=== PATIENT | male | born 1970 | race Caucasian/White ===

== ENCOUNTER → 2025-06-27 07:29 | Outpatient (REF) | payer BC, SELFPAY | LOC: RAD 07:29 | PROVIDERS: ATTENDING PHYSICIAN Internal Medicine Cardiovascular Disease; FAMILY PHYSICIAN Nurse Practitioner Family | DX: Z13.6 Encounter for screening for cardiovascular disorders (principal); Z82.49 Family history of ischemic heart disease and other diseases of the circulatory system | CPT/HCPCS: 76770 ==

== ENCOUNTER 2025-07-14 14:41 | Inpatient (IN) | payer BC, SELFPAY ==
[2025-07-14] VITALS (8 sets, daily range): BP systolic 113–139; BP diastolic 67–88; BMI 30.6
--- NOTE | 2025-07-14 09:46 | ED.GENMED ---
History of Present Illness
General
Chief Complaint: Numbness
Source: patient and spouse
Exam Limitations: none
Time Seen by Provider: 07/14/25 09:21
Nursing documentation reviewed up to this point in time: agreed with
History of Present Illness
History of Present Illness:
Patient is a 54-year-old man with a past medical history of multiple sclerosis who recently underwent left hip surgery for a chronic left hip prosthesis infection. Patient recently had a PICC line placed in his right upper arm for daily
administration of daptomycin for this chronic left hip infection. He is due for his next dose of daptomycin at 10:30 AM this morning. Patient reports that since yesterday, he has been experiencing a feeling of tingling, numbness and achiness
extending from the back of his right shoulder down his forearm into his 4th and 5th right fingers. Patient reports symptoms have been constant. He also feels a sense of numbness and pressure in his right armpit area. Patient denies fevers and
chills. He denies chest pain or shortness of breath. Patient denies any swelling of the right arm. He and his are concerned that there might be some dislodgment of the PICC line or clot. Patient denies numbness of the right face and right
leg. Patient feels as though the right arm is slightly weak due to it feeling slightly tingly. Patient reports that with his MS he has experienced numbness on the right side, however, it has not been this persistent. His reports that he
takes meloxicam and is not able to take any other NSAIDs. Patient reports that he has persistent neck pain but has not experienced any severe acute neck pain. Patient just received recent MRIs of his C-spine which show multiple areas of spinal
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
Past History
Past History
ED Past Medical History: HTN, Hypercholesterolemia and Other (MS)
ED Past Surgical History: Orthopedic
Social History
Tobacco: Non-smoker
Alcohol: Occasional
Drug: None
Personal:
Living: with family
Employment: Employed
Family History
Family History: Other (Noncontributory)
Review of Systems
Review of Systems
Allergies reviewed?: Yes
All Other Systems: ROS reviewed and negative except as documented in HPI and ROS
Constitutional: Reports no symptoms
EENT: Reports other (Chronic mild neck pain but no acute exacerbation or injury)
Respiratory: Reports no symptoms
Cardiac: Reports no symptoms
ABD/GI: Reports no symptoms
: Reports no symptoms
Musculoskeletal: Reports muscle pain (Achiness behind right shoulder extending down right upper arm, right forearm and right 4th and 5th finger)
Skin: Reports no symptoms
Neurological: Reports numbness
Endocrine: Reports no symptoms
Hematologic/Lymphatic: Reports no symptoms
Psychiatric: Reports no symptoms
Phy Exam
Physical Exam
Physical Exam:
Physical Exam
General: no apparent distress, not acutely ill. Uncomfortable appearing
Neck: supple. No crepitus or fullness of cervical neck or bilateral shoulders
Heart: s1/s2 regular rate and rhythm, no murmur. equal radial pulses. Strong pulses in bilateral wrists and upper extremities
Lungs: no acute respiratory distress. clear bilaterally
Abdomen: normal bowel sounds. not tender. no CVAT
Neuro: alert and oriented x 3. no focal neurological deficits. 5 out of 5 strength in all extremities without any drift. Patient notes diminished sensation of lateral upper arm, lateral forearm and 4th and 5th right
fingers
Skin: no rash. No erythema, skin tenderness, rash fluctuance, or swelling of right upper extremity. PICC line site appears clean and dry without drainage or redness
Psychiatric: well kept. interactive and cooperative
Extremities: no edema. no calf tenderness. negative homans. good distal pulses
Course
Orders/Labs/Results
Orders:
Orders
07/14/25 09:44
CR Chest - 2 Views Urgent
Comment:
Reason For Exam: PICC line placement
US Arms, Right [US Periph Venous UPPER Ext RT] Urgent
Comment:
Reason For Exam: numbness, achiness RUE
07/14/25 09:57
Electrocardiogram (*1) Urgent
Reason for Study: Other
Other Reason for Exam: R arm pain and numbness
EKG- Treatment ONCE
07/14/25 12:03
CPK [Creatine Phosphokinase] Urgent
Complete Blood Count/With Diff Urgent
Comprehensive Metabolic Panel Urgent
07/14/25 13:48
Heparin 7,800 units IV NOW STA
07/14/25 13:[address] Non Medication Order As Directed
Physician Order: PTT 6 hours after initial start of Heparin infusion
07/14/25 14:00
Heparin 84648 Units/250 ml 25,000 units in 250 ml IV PER PROTOCOL
Weight to be used for heparin protocol in kilograms (kg):: 97.522
Protocol:: DVT/PE
PTT Goal Range to be used:: PTT 73 to 111 seconds
Order type:: Initial
INITIAL Infusion Dose (UNITS/KG/hr) & then follow protocol:: 18 units/kg/hr
Infusion Dose in UNITS/hr & then follow protocol (UNITS/hr):: 1,800
INFUSION RATE in mL/hr & then follow protocol (mL/hr):: 18
For DVT/PE algorithm, re-bolus for low PTT?: Yes
PTT less than or equal to 64 seconds:: Re-bolus 80 units/kg (max 10,000units). Increase by 400 units/hr
(+ 4mL/hr)
PTT 64.1 to 72.9 seconds:: Re-bolus 40 units/kg (max 5,000 units). Increase by 200 units/hr
(+ 2mL/hr)
PTT 73 to 111 seconds:: Target Range. No change in rate.
PTT 111.1 to 130.9 seconds:: Decrease rate by 200 units/hr (- 2 mL/hr)
PTT 131 to 199.9 seconds:: HOLD for 1 hr. Then decrease by 300 units/hr (- 3mL/hr)
PTT greater than or equal to 200 seconds:: HOLD for 2 hrs & Notify Provider. Then decrease by 400 units/hr
(- 4mL/hr)
Lab follow-up:: Each change, PTT q6h until 2 consecutive are therapeutic. Then
PTT daily.
07/14/25 14:01
Heparin 3,900 units IV PRN PRN
Heparin 7,800 units IV PRN PRN
07/14/25 14:08
PTT Urgent
Comment: Obtain baseline before beginning heparin infusion if not already collected
Abnormal Lab Results
07/14/25
12:03
RBC 4.28 L 10^6/uL
(4.70-6.10)
Hgb 12.0 L g/dL
(13.0-18.0)
Hct 35.7 L %
(39.0-52.0)
Absolute Neuts (auto) 7.3 H 10^3/uL
(1.4-6.5)
Neutrophils % 77.5 H %
(42.2-75.2)
Lymphocytes % 14.5 L %
(20.5-51.1)
BUN 27 H mg/dl
(9-20)
07/14/25 12:03
07/14/25 12:03
Vital Signs
Initial and Last Documented VS:
Initial Vital Signs
Temp Pulse Resp BP Pulse Ox
98.4 F 92 20 123/86 97
07/14/25 09:07 07/14/25 09:07 07/14/25 09:07 07/14/25 09:07 07/14/25 09:07
Last Documented Vital Signs
Temp Pulse Resp BP Pulse Ox
98.4 F 80 20 137/88 97
07/14/25 09:07 07/14/25 13:26 07/14/25 13:26 07/14/25 13:26 07/14/25 09:55
MDM/Problems Addressed
Differential Diagnosis Includes:
Cervical radiculopathy due to spinal stenosis of C-spine, dislodgment of PICC line, DVT of right upper extremity
MDM/Problems Addressed:
Patient presents with isolated tingling and achiness of the right shoulder, right upper arm extending into right 4th and 5th finger
Chronic conditions affecting care:
Multiple sclerosis
Acute Exacerbation and/or Progression of Chronic Illness:
Patient may have acute exacerbation of multiple sclerosis causing focal pain and numbness of right upper extremity
*Radiology
Radiology exam reviewed: preliminary read by ED provider (Chest x-ray read by me. Good placement of PICC line) and radiology read reviewed
*Pulse Oximetry
SaO2: 97
Oxygen Mode of Delivery: Room air
Patient hypoxic: no
*EKG
Interpreted by ED Provider?: Yes
Interpretation: normal
Comparison EKG: no comparison EKG present
Rate: normal
Rhythm: sinus
[place]: normal axis
Interval: normal interval
QRS Pattern: normal QRS
Ischemia: no ischemia
*[employer] Tender Interpretation
Rate: normal
Interpretation: normal
Rhythm: sinus
*Critical Care Note
Total Time (30-74mins, 75-104mins- exclusive of procedures): Not Applicable
Data Reviewed
Review of Other/Old Records Reveals: Radiology Studies (Recent 2024 cervical spine MRI report reviewed from patient's medical records from 's cell phone. I also reviewed C-spine MRI from 2022 which showed multiple levels of DJD and foraminal
narrowing)
Source: patient and spouse
Patient Management
Social determinants of health affecting care: Living situation and Strong social support
Discussion with other providers: Hospitalist and Other (Dr. Luis from hematology as well as interventional radiology and vascular surgery)
Escalation/DeEscalation of care consider admission/obs:
Decision made to start patient on heparin, pull out PICC line and replace PICC line tomorrow. Patient has soft compartments of right upper extremity with strong pulses. There is no sign of neurovascular compromise.
Update Note
Update Note:
Patient appears extremely well and comfortable. Patient has no true weakness of his right upper extremity. Patient has excellent strength bilaterally. Patient has no numbness or tingling in face or leg. Additionally, patient also has pain and
achiness that is not typical of stroke. Additionally, patient has a distribution of numbness and tingling that follows more of a peripheral nerve paresis rather than central stroke.
ED Attending Note
-
Portions of this chart may have been created with voice recognition software.� Occasional wrong word or��sound alike� substitutions may have occurred due to the inherent limitations of voice recognition software.
Discharge Plan
Departure
Patient Disposition: Admit
Date of Disposition: 07/14/25
Time of Disposition: 13:48
Admit to: Med/Surg
Presentation/result/management discussed w/ accepting MD/DO: Hospitalist
Patient with high blood pressure during this ER visit?: No
Condition: Good
Covid-19: Not Applicable
Discharge Problem:
Acute deep vein thrombosis (DVT) of left upper extremity
Prescriptions:
New
Eliquis 5 mg tablet
5 mg PO BID Qty: 70 0RF
Rx Instructions:
To 10 mg twice daily for 7 days then 5 mg twice daily thereafter
No Action
meloxicam [Mobic] 15 mg Tablet
15 mg PO HS
aspirin 81 mg Tablet,Delayed Release (Dr/Ec)
81 mg PO BID
ascorbic acid (vitamin C) [Vitamin C] 250 mg Tablet
250 mg PO DAILY
pantoprazole [Protonix] 40 mg Tablet,Delayed Release (Dr/Ec)
40 mg PO BID
cholecalciferol (vitamin D3) [Vitamin D3] 10 mcg (400 unit) Tablet
10 mcg PO DAILY
Visbiome 112.5 billion cell Capsule
1 cap PO DAILY
daptomycin 350 mg Recon Soln
600 mg IV DAILY@1000
Rx Instructions:
patient has 5 weeks remaining
Referrals:
Trevor Gomez CRNP [Family Provider, General]
Interventions
Interventions:
*Risk Screen - Suicide Last Done: 07/14/25 09:07
*General Assessment Last Done: 07/14/25 09:07
*Neglect/Abuse Screening Last Done: 07/14/25 09:07
[facility] Fall Risk Assessment Tool Last Done: 07/14/25 10:38
ED- Neurological Assessment Last Done: 07/14/25 10:26
Discharge Date and Time
Print Language: WOLOF
[2025-07-14 12:23] LABS: Hematocrit 35.7 % (39.0-52.0); Hemoglobin 12.0 g/dL (13.0-18.0); Mean Corp Hgb Conc. 33.6 g/dL (33.0-37.0); Mean Corpuscular Volume 83.4 fL (80.0-94.0); Nucleated Red Blood Cells % 0 % (-); Platelet Count 295 10^3/uL (130-400); Red Cell Dist. Width 14.3 % (11.5-14.5)
[2025-07-14 12:32] LABS: ALT (SGPT) 50 U/L (0-50); AST (SGOT) 35 U/L (17-59); Albumin 3.9 g/dl (3.5-5.0); Alkaline Phosphatase 94 U/L (38-126); Blood Urea Nitrogen 27 mg/dl (9-20); Calcium 9.2 mg/dl (8.4-10.2); Carbon Dioxide 25 mmol/L (22-30); Chloride 105 mmol/L (98-107); Glucose 95 mg/dl (70-99); Potassium 4.4 mmol/L (3.5-5.1); Sodium 137 mmol/L (135-145); Total Protein 6.4 g/dl (6.3-8.2); eGFR > 60.00
--- NOTE | 2025-07-14 13:42 | HPS.HSE ---
Family Physician
-
Family Physician: ROSALBA Milligan
Chief Complaint
-
right upper extremity numbness and tingling
History of Present Illness
Patient is a 54-year-old male with past medical history significant for multiple sclerosis, CAD and hyperlipidemia who presented to [facility] ED for evaluation of right upper extremity numbness and tingling. Patient reports having left hip revision with
RUE PICC placement 9 days ago for on going prosthetic infection. Patient currently has left hip spacer in place and is 50% weight bearing to that leg. He describes numbness and tingling down right arm to 4th and 5th digits that he stated felt
different than previous numbness and tingling with MS. He felt it was positional from possible poor posture. He notes 'heaviness' in right shoulder, upper chest and armpit. He states it has been consitent since onset yesterday afternoon. PICC line
was functioning proplerly and no difficulty with flushing. Denies fever, chills, cough, shortness of breath or chest pain.
Medical History
Past Medical History
Past Medical History: Reports Other
Additional Past Medical History:
multiple sclerosis
CAD
hyperlipidemia
Past Surgical History: Reports Other
Additional Past Surgical History:
LTHA 08.22.2023
Right RAKESH DOS 11/21/23 [facility]
Social History
Tobacco: Non-smoker
Alcohol: Occasional
Drug: None
Personal:
Living: With Family
Employment: Employed
Family History
Family History: Not pertinent
Allergies / Home Medications
Allergies reflects when Allergies were last updated in [facility].
Home Medications with original date entered in [facility]
Allergy/Medication List:
Allergies
Allergy/AdvReac Type Severity Reaction Status Date / Time
NKA - No Known Allergies Allergy Unknown Uncoded 07/14/25 09:12
Home Medications
Lactobac no.2-Bifidobac no.1-S. thermo 112.5 billion cell capsule (Visbiome) 1 cap PO DAILY Supplement 07/14/25
apixaban 5 mg tablet (Eliquis) 5 mg PO BID #70 tabs 07/14/25
ascorbic acid (vitamin C) 250 mg tablet (Vitamin C) 250 mg PO DAILY Supplement 07/14/25
aspirin 81 mg tablet,delayed release 81 mg PO BID Blood Clot Prevention/Tx 07/14/25
cholecalciferol (vitamin D3) 10 mcg (400 unit) tablet (Vitamin D3) 10 mcg PO DAILY Supplement 07/14/25
daptomycin 350 mg intravenous solution 600 mg IV DAILY@1000 Infection 07/14/25
meloxicam 15 mg tablet 15 mg PO HS Anti-Inflammatory 07/14/25
pantoprazole 40 mg tablet,delayed release (Protonix) 40 mg PO BID Gastrointestinal Issue 07/14/25
Review of Systems
-
History Source: Patient
Constitutional: Denies Fever or Chills
EENT: Denies Tearing
Respiratory: Denies Cough, Hemoptysis or Trouble Breathing
Cardiac: Denies Chest Pain, Diaphoresis, Palpitations or Syncope
Abdomen/GI: Denies Abdominal Pain, Nausea, Vomiting or Diarrhea
: Denies Dysuria, Frequency or Urgency
Musculoskeletal: Reports Other (RUE numbness and tingling down arm to 4th and 5th digit with 'heaviness' in right shoulder/upper chest and right armpit)
Skin: Denies Itching
Neurological: Denies Dizzy, Headache, Weakness or Numbness
Physical Exam
Vital Signs
Vital Signs
Temp Pulse Resp BP Pulse Ox
98.4 F 80 20 137/88 97
07/14/25 09:07 07/14/25 13:26 07/14/25 13:26 07/14/25 13:26 07/14/25 09:55
Physical Exam
General: Well Developed, Well Nourished, No Apparent Distress, Comfortable and Conversant
HEENT: NormoCephalic, Moist mucous membranes, Nose Appears Normal and Ears Appear Normal
Respiratory: Clear and Non Labored Respirations; No Wheezes, Rales or Rhonchi
Cardiac: Regular Rhythm and Other (strong BLUE pulses ); No Murmur, Rub, Gallop or Peripheral Edema
GI: Soft, Non Tender, Non Distended and Normal Bowel Sounds
Musculoskeletal: No Clubbing, No Cyanosis and No Edema
Skin: Warm and IV/Catheter Site (RUE PICC)
Neuro: Awake and AO x 3
Psych: Calm and Intact Judgment/Insight
Laboratory Results
-
07/14/25 12:03
07/14/25 12:03
Laboratory Results
Total Bilirubin 0.6 mg/dl (0.2-1.3) 07/14/25 12:03
AST 35 U/L (17-59) 07/14/25 12:03
ALT 50 U/L (0-50) 07/14/25 12:03
Alkaline Phosphatase 94 U/L (38-126) 07/14/25 12:03
Data Reviewed
-
Diagnostic Radiology: Report Reviewed by me (CXR: No acute cardiopulmonary process. The right PICC appears well-positioned with the tip in the SVC)
Ultrasound: Report Reviewed by me (RUE Peripheral Venous: Thrombus noted along the course of the right PICC. Nonocclusive thrombus in the mid and distal segments of the right axillary vein. Thrombus in the right basilic vein, nonocclusive in the
distal segment and nearly occlusive in the proximal segment. The right internal jugular,)
Lab Data: Labs Reviewed by me
Impression/Plan
-
IMPRESSION/PLAN:
#numbness and tingling of RUE down to right 4th and 5th digit 2/2 DVT vs. MS exacerbation
RUE numbness and tingling down arm to 4th and 5th digit with 'heaviness' in right shoulder/upper chest and right armpit
labs unremarkable
CXR: No acute cardiopulmonary process.
The right PICC appears well-positioned with the tip in the SVC
RUE Periph Venous US: Thrombus noted along the course of the right PICC. Nonocclusive thrombus in the mid and distal segments of the right axillary vein. Thrombus in the right basilic vein,
nonocclusive in the distal segment and nearly occlusive in the proximal segment.
The right internal jugular, subclavian, brachial, and cephalic veins are patent.
- Admit to med/surg
- Consult IR to replace PICC line
- Heparin gtt
- expect to bridge to [facility]
- Consult Case Management for OAC pricing
#left hip prosthetic infection
being treated at [facility] in [place]
approximate 9 days ago had left hip revision with spacer placed and RUE PICC for IV antibiotics at home
- continue daptomycin
- Consult Wound care for surgical incision
#CAD
- continue aspirin
#multiple sclerosis
#hyperlipidemia
Code status: full code
DVT prophylaxis: heparin gtt
--- NOTE | 2025-07-14 13:55 | VATNOTE ---
Called to ED by PCN to discuss PICC line in light of clot in R arm with ED MD. Pt for 5 more weeks of daptomycin. ED MD states that per hematology, clot should be stabilized with heparin for a period of time before removing the PICC after that time
the PICC could be replaced in the LUE and the pt should be sent home on blood thinners. Clave on PICC line taped and annotated with 'DO NOT USE.'
[2025-07-14] MEDS: HEPARIN 25000 UNITS/250 ML IV (14:18)
[2025-07-14] MEDS: HEPARIN 7800 UNITS IV (14:20)
[2025-07-14 14:26] LABS: APTT 33.1 Sec (23.4-35.0)
--- NOTE | 2025-07-14 14:59 | CM ---
Chart reviewed and spoke with patient and [place] at ED bedside
He is alert and oriented x3
Left hip Revision done at outside hospital
left lower leg 50% wt bearing [facility]
RUE Picc for Dapto by [facility]
DME walker w/c and cane
Works from home
supportive
PCP Dr. Trevor Belcher
[facility] in [place]
[facility]
no hx of SNF
DCP is to go home with services vs SNF vs AR?
Cm will continue to follow up for any dcp needs
[2025-07-14] MEDS: ASPIR LOW (ENTERIC COATED) 81 MG PO (19:57)
[2025-07-14] MEDS: PROTONIX PO (19:57)
[2025-07-14] MEDS: TYLENOL 650 MG PO (20:21)
[2025-07-14 20:43] LABS: INR 1.14; PT 14.7 Sec (11.4-14.6)
[2025-07-14 20:46] LABS: APTT 125.2 Sec (23.4-35.0)
[2025-07-15 03:06] VITALS: BP 110/71
[2025-07-15 03:38] LABS: APTT 106.5 Sec (23.4-35.0)
[2025-07-15] MEDS: HEPARIN 25000 UNITS/250 ML IV ×2 (05:27→21:15)
[2025-07-15 07:22] VITALS: BP 129/67
[2025-07-15] MEDS: PROTONIX 40 MG PO (08:23)
[2025-07-15] MEDS: ASPIR LOW (ENTERIC COATED) PO ×2 (08:23→19:36)
--- NOTE | 2025-07-15 08:23 | PTCARENOTE ---
in room during AM med pass, advised this RN not to give AM ASA due to pt being on heparin gtt. AM dose of ASA held, see OCT.
--- NOTE | 2025-07-15 08:35 | CON.ONC ---
Consultation
-
Date Consultation Requested: 07/15/25
Date Consultation Performed: 07/15/25
Requesting Provider: Dr. Jose Antonio Deleon
Performing Provider: Dr. Minerva Mesa
Reason for Consultation: DVT
Impression
Impression
Provoked in the setting of right upper extremity PICC line placed at [facility] for home Dapto infusion after left hip revision
Left hip prosthetic infection -on dapto
MTRF mutation
mild normocytic anemia - suspect due to surgery, infection, abx
Multiple sclerosis
Plan
Plan
PO vit b12 daily for level <400
Remove PICC, defer to ID specialists if new picc line is needed based on next steps in abx therapy
pain management
Anticoagulating with IV heparin drip
transition to DOAC at discharge
repeat UE US prior to cessation of DOAC
close follow up with our OP office will be arranged upon discharge
Patient History
History of Present Illness
54-year-old M who presented to ED for evaluation of right upper extremity numbness and tingling. He has a RUE PICC for on going prosthetic infection following a left hip revision. He reports numbness and tingling down the right arm to 4th and 5th
digits that he stated felt different than previous numbness and tingling with his MS. He also reports 'heaviness' in right shoulder, upper chest and armpit since Tuesday afternoon. His PICC line was functioning without difficulty with flushing. His
initial evaluation was notable for Hgb 12g/dL, MCV 83.4 with normal platelets, WBC, LFTS, electrolytes, and renal function. His CXR showed no acute cardiopulmonary findings and his RUE PICC was well positioned in SVC. His RUE US showed Thrombus
noted along the course of the right PICC. Nonocclusive thrombus in the mid and distal segments of the right axillary vein. Thrombus in the right basilic vein, nonocclusive in the distal segment and nearly occlusive in the proximal segment. The right
internal jugular, subclavian, brachial, and cephalic veins are patent.
Clinically, He denies fever, chills, cough, shortness of breath, chest pain, palpitations, n/v/d/c or abdominal pain. He denies any overt bleeding.
Afebrile, no hypoxia or hypotension.
Past-Medical/Surgical History
PMH MS, CAD, HLD
PSH Left hip replacement and revision. Right RAKESH DOS 11/21/23V
Social , employed, denies smoking, ETOH or recreational drugs
Family: non-contributory
Patient Medication
�Medication �Instructions �Recorded �Confirmed �Last Taken �Type
Lactobac no.2-Bifidobac no.1-S. 1 cap PO DAILY Supplement 07/14/25 07/14/25 07/13/25 History
thermo 112.5 billion cell capsule
(Visbiome)
apixaban 5 mg tablet (Eliquis) 5 mg PO BID #70 tabs 07/14/25 Unknown Rx
ascorbic acid (vitamin C) 250 mg 250 mg PO DAILY Supplement 07/14/25 07/14/25 07/13/25 History
tablet (Vitamin C)
aspirin 81 mg tablet,delayed 81 mg PO BID Blood Clot 07/14/25 07/14/25 07/14/25 History
release Prevention/Tx
cholecalciferol (vitamin D3) 10 10 mcg PO DAILY Supplement 07/14/25 07/14/25 07/13/25 History
mcg (400 unit) tablet (Vitamin D3)
daptomycin 350 mg intravenous 600 mg IV DAILY@1000 Infection 07/14/25 07/14/25 07/14/25 History
solution
meloxicam 15 mg tablet 15 mg PO HS Anti-Inflammatory 07/14/25 07/14/25 07/13/25 History
pantoprazole 40 mg tablet,delayed 40 mg PO BID Gastrointestinal Issue 07/14/25 07/14/25 07/14/25 History
release (Protonix)
Active Medications
Generic Name Dose Route Start Last Admin
Trade Name Freq PRN Reason Stop Dose Admin
Acetaminophen 650 mg 07/14/25 19:36 07/14/25 20:21
Acetaminophen 325 Mg Tablet PO 08/11/25 19:35 650 mg
Q4HPRN PRN Administration
pain/fever
Aspirin 81 mg 07/14/25 20:00 07/15/25 08:23
Aspirin 81 Mg (Enteric Coated) Tablet PO 08/11/25 19:59 Not Given
BID SHIELA
Heparin Sodium 7,800 units 07/14/25 14:01
Heparin 80 Units/Kg Iv Rebolus IV 08/11/25 14:00
PRN PRN
PTT < OR = 64 seconds
Heparin Sodium 3,900 units 07/14/25 14:01
Heparin 40 Units/Kg Iv Rebolus IV 08/11/25 14:00
PRN PRN
PTT = 64.1 to 72.9 seconds
Heparin Sodium 25,000 units in 250 mls @ 0 mls/hr 07/14/25 14:00 07/15/25 05:27
Heparin 92150 Units/250 Ml IV 250 mls
PER PROTOCOL SHIELA Administration
Protocol
Per Protocol
Daptomycin 600 mg/ Device 12 mls @ 0 mls/hr 07/15/25 10:00
IV
Q24H SHIELA
Pantoprazole Sodium 40 mg 07/14/25 20:00 07/15/25 08:23
Pantoprazole 40 Mg Delayed Release Tablet PO 08/11/25 19:59 40 mg
BID SHIELA Administration
Sodium Chloride 0 flush 07/14/25 20:00
Sodium Chloride 0.9% (Flush) Syringe IV 08/11/25 19:59
PER PROTOCOL SHIELA
Review of Systems
-
ROS is notable for HPI, otherwise negative
Physical Exam
-
General: No Apparent Distress
HEENT: Moist Mucous Membranes; Negative Jaundice
Pulmonary: Other (unlabored)
GI: Soft
Extremities: Pulses Present
Neurology: Non Focal
Skin: Warm, IV Access / Catheter Site (RUE PICC) and Other (left hip surgical wound CDI with eduardo in place and no drainage)
Psych: Calm
Labs
Lab Results
WBC 9.4 10^3/uL (4.8-10.8) 07/14/25 12:03
RBC 4.28 10^6/uL (4.70-6.10) L 07/14/25 12:03
Hgb 12.0 g/dL (13.0-18.0) L 07/14/25 12:03
Hct 35.7 % (39.0-52.0) L 07/14/25 12:03
MCV 83.4 fL (80.0-94.0) 07/14/25 12:03
MCH 28.0 pg (27.0-31.0) 07/14/25 12:03
MCHC 33.6 g/dL (33.0-37.0) 07/14/25 12:03
RDW 14.3 % (11.5-14.5) 07/14/25 12:03
Plt Count 295 10^3/uL (130-400) 07/14/25 12:03
MPV 9.0 fL (7.4-10.4) 07/14/25 12:03
Abs Immat Gran (auto) 0.0 10^3/uL (0-0.05) 07/14/25 12:03
Absolute Neuts (auto) 7.3 10^3/uL (1.4-6.5) H 07/14/25 12:03
Absolute Lymphs (auto) 1.4 10^3/uL (1.2-3.4) 07/14/25 12:03
Absolute Monos (auto) 0.5 10^3/uL (0.1-0.6) 07/14/25 12:03
Absolute Eos (auto) 0.2 10^3/uL (0-0.7) 07/14/25 12:03
Absolute Basos (auto) 0.0 10^3/uL (0-0.2) 07/14/25 12:03
Immature Gran % 0.4 % (0-0.5) 07/14/25 12:03
Neutrophils % 77.5 % (42.2-75.2) H 07/14/25 12:03
Lymphocytes % 14.5 % (20.5-51.1) L 07/14/25 12:03
Monocytes % 5.6 % (1.7-9.3) 07/14/25 12:03
Eosinophils % 1.6 % (0-6) 07/14/25 12:03
Basophils % 0.4 % (0-2) 07/14/25 12:03
Creatinine 0.8 mg/dL (0.7-1.3) 07/14/25 12:03
Vital Signs
Vital Signs
Temp Pulse Resp BP Pulse Ox
98.8 F 64 18 129/67 94
07/15/25 07:22 07/15/25 07:22 07/15/25 07:22 07/15/25 07:22 07/15/25 07:22
[2025-07-15] MEDS: CUBICIN 12 MG IV (09:45)
[2025-07-15 09:55] LABS: APTT 88.8 Sec (23.4-35.0)
--- NOTE | 2025-07-15 10:04 | W.PN.HOSP.TC ---
Addendum entered and electronically signed by Adolfo Deleon MD 07/15/25 17:34:
Addendum
Discussed with patient and his options for anticoagulation. They chose Eliquis. Co-pay around $80 at pharmacy
Discussed plan of care. Answered questions
End
Original Note:
Today's Communication/Plan
-
.
Assessment / Plan
Assessment / Plan
Physical exam:
General: No Apparent Distress, Comfortable and Conversant
HEENT: Normocephalic, Moist mucous membranes, Atraumatic
Respiratory: Clear and Non Labored Respirations
Cardiac: S1/S2 and Regular Rhythm; No Rub or Gallop
GI: Soft, normal bowel sounds
Musculoskeletal: No Edema, no deformity, right upper extremity PICC
Skin: Warm and dry, left hip surgical wound CDI with eduardo in place and no drainage
: No Jarrett
Neuro: Awake, Alert, Nonfocal/grossly intact
Psych: Calm and cooperative
Right upper extremity DVT:
- Provoked in the setting of right upper extremity PICC line placed at [facility] and [facility] for home Dapto infusion after left hip revision
- Anticoagulating with IV heparin drip
- remove Left Pic line
- Case management to [place] check for Eliquis
- Apparently, pt and are saying that his ID doctor Dr Garner at [facility] is trying to get him to have a different antibiotic than may not require another Pic line,
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
- Continue daptomycin, consul ID doctor to help with decision making and guide us.
- Wound care
- 50% weightbearing left lower extremity
Multiple sclerosis:
- Mild disease, not on disease modifying therapy
# Anemia due to recent surgeries. Acute blood loss anemia, no indication for transfusion.
DVT prophylaxis: Anticoagulation
CODE STATUS: Full code
Total time spent to see the patient, examined the patient, reviewed data and lab result, discuss treatment plan with patient, nursing staff around 55 minutes
Anticipated Discharge: 24 - 48 hours
Subjective/Interval History
-
Date of Service: July 15, 2025
No chest pain
No sob
No fevers
Objective Data
-
Labs:
Laboratory Results
07/15/25 07/15/25 07/15/25
03:08 07:29 09:36
APTT 106.5 H Cancelled 88.8 H
Vital Signs:
Vital Signs
Temp Pulse Resp BP Pulse Ox
98.8 F 64 18 129/67 94
07/15/25 07:22 07/15/25 07:22 07/15/25 07:22 07/15/25 07:22 07/15/25 07:22
I&O
07/14/25 07/15/25 07/16/25
06:59 06:59 06:59
Intake Total 720 / 720
Output Total 650 / 650
Balance 70 / 70
[2025-07-15 11:00] LABS: Ferritin 134.0 ng/ml (17.9-464.0)
--- NOTE | 2025-07-15 11:25 | WOUNDNOTE ---
KRYSTYNA RN NOTE: Patient admitted with DVT of L leg. Reviewed patient's medical history and chart. Asked to see patient for L hip surgical site. History of L hip prosthetic infection and surgery done few wks ago [place] patient [place].
Patient able to turn self, L hip with eduardo and few steri strips, no drainage. R hip with healed surgical site. Recommend keep open to air unless drainage then apply ABD pad secured with underwear. Will sign off.
[2025-07-15 11:32] VITALS: BP 130/83
[2025-07-15] MEDS: TYLENOL 650 MG PO ×3 (12:03→22:37)
--- NOTE | 2025-07-15 13:04 | CON.ID ---
Consultation
-
Date/Time Consultation Requested: 07/14/2025 1915
Date/Time Consultation Performed: 07/15/2025 1300
Requesting Provider: Michaelle Sorenson
Performing Provider: Dr. Barry
Reason for Consultation: Hx left hip prosthetic infection
Chief Complaint / Past History
History of Present Illness
Rodrigo Sheppard is a 54-year-old man with a significant past medical history of multiple sclerosis and recent left hip PJI being evaluated at the request of Michaelle Sorenson regarding the same. History is obtained from chart review, along with patient
interview. Additional history was obtained from patient's who is at the bedside.
The patient had his left hip replacement in August 2023, with a subsequent right hip replacement in November 2023. He notes that afterwards, he had significant issues with his left hip despite physical therapy, and had increasing instability in
March. He had been visiting the [facility], and had a CAT scan performed of the area. Thereafter, he consulted with his initial orthopedic surgeon who did not feel that there was significant issues with the scans. The patient ultimately sought
several other opinions, and further testing revealed that he had a left hip prosthetic joint infection secondary to P. acnes. On 07/01/2025 he underwent explantation of his left hip with spacer placement, and he was placed on daptomycin 600 mg IV
q.24 hours, with an anticipated 6-week course of therapy. Several days ago he developed right arm swelling and tingling, and presented to the ER at [facility] for further evaluation. Here, I right upper extremity DVT was diagnosed. The
patient has been placed on heparin. The family has been in contact with the patient's infectious disease doctor in [place], and the plan is for the patient to be switched to dalbavancin. Insurance approval is pending.
The present time, patient denies any significant discomfort in his left hip area. Sebastian remain in place. He notes no drainage of the area.
Past History
Additional Past Medical History:
Multiple sclerosis
CAD
HLD
Additional Past Surgical History:
B/L hip replacement
(L) hip explant with spacer (07/01/25)
Allergy History:
NKA - No Known Allergies Allergy (Uncoded 07/14/25 09:12)
Unknown
Medications Reviewed: Yes
Current Antibiotics:
Daptomycin
Social History
Tobacco: Non-Smoker
Alcohol: None
Drug: None
Personal:
Living: With Family
Employment: Employed
Family History
Family History: Not Pertinent
Review of Systems
Vital Signs
Temp Pulse Resp BP Pulse Ox
98.8 F 64 18 129/67 94
07/15/25 07:22 07/15/25 07:22 07/15/25 07:22 07/15/25 07:22 07/15/25 11:56
Physical Exam
Physical Exam
Constitutional: No Acute Distress, Comfortable and Non-toxic
Eyes: No Conjunctival Hemorrhage and Sclera Anicteric
Oral: No Thrush and No Ulcers
Cardiovascular: Regular Rate and S1/S2; Negative S3/S4
Pulmonary: Clear; Negative Wheezes, Rales or Rhonchi
Gastrointestinal: Soft, Non Tender, Non Distended and Normal Bowel Sounds
Extremities: Edema (trace - RUE); Negative Cyanosis, Erythema or Venous Insufficiency
Wound: Other (Left hip incision with sebastian in place. Area clean, dry and intact. No drainage.)
Neurological: Awake and Alert
Lines: PICC (Right upper extremity)
Lab / Diagnostic Study Results
07/14/25 12:03
07/14/25 12:03
Abs Immat Gran (auto) 0.0 10^3/uL (0-0.05) 07/14/25 12:03
Absolute Neuts (auto) 7.3 10^3/uL (1.4-6.5) H 07/14/25 12:03
Absolute Lymphs (auto) 1.4 10^3/uL (1.2-3.4) 07/14/25 12:03
Absolute Monos (auto) 0.5 10^3/uL (0.1-0.6) 07/14/25 12:03
Absolute Basos (auto) 0.0 10^3/uL (0-0.2) 07/14/25 12:03
Immature Gran % 0.4 % (0-0.5) 07/14/25 12:03
Neutrophils % 77.5 % (42.2-75.2) H 07/14/25 12:03
Lymphocytes % 14.5 % (20.5-51.1) L 07/14/25 12:03
Monocytes % 5.6 % (1.7-9.3) 07/14/25 12:03
Eosinophils % 1.6 % (0-6) 07/14/25 12:03
Basophils % 0.4 % (0-2) 07/14/25 12:03
ESR 36 mm/hour (0-20) H 07/15/25 09:36
PT 14.7 Sec (11.4-14.6) H 07/14/25 20:27
INR 1.14 07/14/25 20:27
Assessment / Plan
Left hip PJI
- S/p explantation with spacer placement (07/01/2025
- Currently on 6-week course of daptomycin.
Right upper extremity PICC line associated DVT
Multiple sclerosis
CAD
HLD
Recommendations:
Continue with daptomycin while inpatient.
Rodrigo is currently under the care of Dr. Javi Garner in [place] (c [phone]) and they note that Dr. Garner would prefer not to replace the PICC, and they are currently attempting to have dalbavancin approved, which may occur in the next 24 to
48 hours. They have been in touch with [facility], who will proceed with the infusion once insurance approval has been obtained.
If insurance approval is delayed, it is a possibility that Rodrigo can be discharged with a peripheral IV, and receive therapy in the outpatient infusion department as a bridge until dalbavancin is approved.
Continue with local care to the left hip area.
CPK has been checked and is normal.
Care Review
Plan reviewed with: Physician (Hospitalist)
[2025-07-15 13:52] LABS: Folate 19.4 ng/ml (2.76-20); Vitamin B12 356 pg/ml (239-931)
[2025-07-15] MEDS: ATIVAN 0.5 MG PO (14:30)
--- NOTE | 2025-07-15 15:22 | CM ---
Addendum entered by Sonia Payne 07/15/25 15:25:
CM consult for O[facility] pricing
TT/attending requesting name, dose, and frequency for pricing
Original Note:
CM reviewed chart, not ready for dc
Pt currently under care of [facility] at home for IV dapto
Will follow ID tx plan, watch for possible outpt infusion needs as pt awaits insurance approval for dalbavancin (being managed by [place] physician)
CM will remains available for dc planning
Discharge Disposition- likely home with [facility] abx, watch for ID tx plan
[2025-07-15 15:24] VITALS: BP 129/75
[2025-07-15 19:02] VITALS: BP 130/77
[2025-07-15] MEDS: PROTONIX PO (19:36)
[2025-07-15 23:12] VITALS: BP 115/67
[2025-07-16 03:34] VITALS: BP 110/65
[2025-07-16 06:25] LABS: APTT 89.8 Sec (23.4-35.0)
[2025-07-16 07:35] VITALS: BP 112/67
[2025-07-16] MEDS: PROTONIX 40 MG PO (09:35)
[2025-07-16] MEDS: ELIQUIS 10 MG PO (09:35)
--- NOTE | 2025-07-16 09:43 | W.PN.HOSP.TC ---
Addendum entered and electronically signed by Adolfo Deleon MD 07/17/25 07:07:
Addendum
ID Contacted me. Patient and reported the new medicine antibiotic dalbavancin was approved and set up for patient to receive as outpatient. Patient remained hemodynamic stable and Eliquis was already sent to his pharmacy. Discussed with
porter sample case.
Total discharge time spent to see the patient, examined the patient, reviewed data and lab result, discuss discharge plan with patient, ID doctor, porter sample case, nursing staff around 65 minutes
Original Note:
Today's Communication/Plan
-
.
Assessment / Plan
Assessment / Plan
Physical exam:
General: No Apparent Distress, Comfortable and Conversant
HEENT: Normocephalic, Moist mucous membranes, Atraumatic
Respiratory: Clear and Non Labored Respirations
Cardiac: S1/S2 and Regular Rhythm; No Rub or Gallop
GI: Soft, normal bowel sounds
Musculoskeletal: No Edema, no deformity, right upper extremity PICC
Skin: Warm and dry, left hip surgical wound CDI with eduardo in place and no drainage
: No Jarrett
Neuro: Awake, Alert, Nonfocal/grossly intact
Psych: Calm and cooperative
Right upper extremity DVT:
Patient is feeling better with less numbness and able to function while on the right upper extremity. Good peripheral pulses. No swelling noted. No erythema noted in the right upper extremity.
- Provoked in the setting of right upper extremity PICC line placed at [facility] and [facility] for home Dapto infusion after left hip revision
- s/p Anticoagulating with IV heparin drip for 48 hours, removed pic 07/15,
Discussed oral anticoagulation therapy with patient and his . They verbalized understanding of potential side effects/risks/benefits of systemic anticoagulation. They chose Eliquis. Called [facility] and co-pay around $80, patient agreed to take it.
Appreciate hematology input. Will need follow-up in outpatient setting. Anticipated duration of systemic anticoagulation around 3 months.
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
- Continue daptomycin, consulted ID doctor, appreciate input.
Patient and his a primary ID doctor (( Dr. Javi Garner in [place] (c [phone]))) are considering switching to dalbavancin. They are working on prior authorization with his insurance. If approved, patient will be discharge without need for
PICC line.
- Wound care
Stopped DVT prophylaxis as recommended by his primary orthopedic. Patient was on aspirin 81 mg twice daily. Now he is in on Eliquis, continue with Eliquis only.
- 50% weightbearing left lower extremity
Multiple sclerosis:
- Mild disease, not on disease modifying therapy
# MTRF mutation
Checking homocystine level
# Vitamin B12 deficiency, started on oral vitamin.
# Anemia due to recent surgeries. Acute blood loss anemia, no indication for transfusion.
DVT prophylaxis: Anticoagulation
CODE STATUS: Full code
Total time spent to see the patient, examined the patient, reviewed data and lab result, discuss treatment plan with patient, , oncology, nursing staff around 55 minutes
Anticipated Discharge: 24 - 48 hours
Subjective/Interval History
-
Date of Service: July 16, 2025
No complaints
He is feeling improvement in left upper extremity numbness.
Objective Data
-
Labs:
Laboratory Results
07/16/25
06:06
APTT 89.8 H
Vital Signs:
Vital Signs
Temp Pulse Resp BP Pulse Ox
98.7 F 63 16 112/67 95
07/16/25 07:35 07/16/25 07:35 07/16/25 07:35 07/16/25 07:35 07/16/25 07:35
I&O
07/15/25 07/16/25 07/17/25
06:59 06:59 06:59
Intake Total 720 / 720 1520 / 1520
Output Total 650 / 650 300 / 300
Balance 70 / 70 1220 / 1220
[2025-07-16] MEDS: CUBICIN 12 MG IV (09:46)
[2025-07-16 11:45] VITALS: BP 119/68
--- NOTE | 2025-07-16 12:15 | W.PN.ONC ---
Today's Communication / Plan
-
As per above plan. Could consider thrombolysis, but that does have an increased risk of complications. Would prefer to go with Eliquis. Assuming the arm looks and feels good in 3 months, the Eliquis can be stopped at that time. Also agree with
plans for B12 1 mg daily for the rest of his life given his low normal B12 level.
Impression
Impression
Provoked in the setting of right upper extremity PICC line placed at [facility] and [facility] for home Dapto infusion after left hip revision
Left hip prosthetic infection -on dapto
MTRF mutation
mild normocytic anemia - suspect due to surgery, infection, abx
Multiple sclerosis
Plan
Plan
PO vit b12 daily for level <400
Remove PICC, defer to ID specialists if new picc line is needed based on next steps in abx therapy
pain management
Anticoagulating with IV heparin drip
transition to DOAC at discharge
repeat UE US prior to cessation of DOAC
close follow up with our OP office will be arranged upon discharge
Subjective/Objective
Subjective/Objective
He is feeling reasonably well. His right upper extremity is a little less swollen and he has more sensation in it. Examination is otherwise unchanged.
Vital Signs:
Vital Signs
Temp Pulse Resp BP Pulse Ox
99.2 F 71 16 119/68 94
07/16/25 11:45 07/16/25 11:45 07/16/25 11:45 07/16/25 11:45 07/16/25 11:45
Lab Results:
Laboratory Data
WBC 9.4 10^3/uL (4.8-10.8) 07/14/25 12:03
Hgb 12.0 g/dL (13.0-18.0) L 07/14/25 12:03
Plt Count 295 10^3/uL (130-400) 07/14/25 12:03
PT 14.7 Sec (11.4-14.6) H 07/14/25 20:27
INR 1.14 07/14/25 20:27
APTT 89.8 Sec (23.4-35.0) H 07/16/25 06:06
eGFR > 60.00 07/14/25 12:03
[2025-07-16] MEDS: VITAMIN B-12 1000 MCG PO (12:27)
--- NOTE | 2025-07-16 14:56 | W.PN.ID1 ---
Date of Service
Date of Service: July 16, 2025
Today's Communication
Okay for discharge from ID standpoint
Assessment / Plan
Left hip PJI
- S/p explantation with spacer placement (07/01/2025
- Currently on 6-week course of daptomycin.
Right upper extremity PICC line associated DVT
Multiple sclerosis
CAD
HLD
Recommendations:
Patient overall stable.
Dalbavancin has been secured and will be delivered to the patient's house later this evening by [facility].
Patient will begin dalbavancin tomorrow, as written for by patient's ID physician in [place].
Patient stable for discharge from ID standpoint.
Chief Complaint
-: Other (Left hip prosthetic joint infection)
Subjective / Review of Systems
Patient seen and examined. Reports no significant issues at present. Denies complaints.
Review of Systems: No Fever and No Chills
Vital Signs / Physical Exam
Vital Signs
Vital Signs
Temp Pulse Resp BP Pulse Ox
99.2 F 71 16 119/68 94
07/16/25 11:45 07/16/25 11:45 07/16/25 11:45 07/16/25 11:45 07/16/25 11:45
Physical Exam
Constitutional: No Acute Distress, Comfortable and Non-toxic
Head: Normocephalic
Eyes: Sclera Anicteric
Pulmonary: Non Labored
Gastrointestinal: Non Distended
Wound: Other (Left hip incisional area with eduardo in place. No periwound erythema. No drainage.)
Neurological: Awake and Alert
Psychological: Calm
Lines: Other (Right upper extremity PICC line removed.)
Objective Data
Lab Data
Lab Results
07/14/25 12:03
07/14/25 12:03
ESR 36 mm/hour (0-20) H 07/15/25 09:36
PT 14.7 Sec (11.4-14.6) H 07/14/25 20:27
INR 1.14 07/14/25 20:27
APTT 89.8 Sec (23.4-35.0) H 07/16/25 06:06
Total Bilirubin 0.6 mg/dl (0.2-1.3) 07/14/25 12:03
AST 35 U/L (17-59) 07/14/25 12:03
ALT 50 U/L (0-50) 07/14/25 12:03
Alkaline Phosphatase 94 U/L (38-126) 07/14/25 12:03
Most recent labs reviewed.
Care Review
Plan reviewed with: Physician (Hospitalist; nightclub manager)
[2025-07-16 15:54] VITALS: BP 143/70
--- NOTE | 2025-07-16 16:12 | CM ---
CM reviewed pt with attending and ID
Pt planned for dc home- [facility] ID physician has made arrangements for pt to continue to work with [facility] for Dalbavancin now
Call with Latisha/Ricardo Trammell who confirmed all orders have been received form [facility] physician and no paperwork/orders needed from CM at this time
Update to pt and spouse who noted auth for medication is still pending but they will be private paying for med until approval
Discharge Disposition- home, no needs
--- NOTE | 2025-07-16 17:04 | PTCARENOTE ---
Patient discharged home, and patient clarified with this RN and CM that IV abx will be delivered to home and [facility] has been set up to administer IV abx in AM. Peripheral IV and tele pack removed, vitals taken by tech. Patient dressed and
gathered belongings in room with assistance of spouse. This RN reviewed DC medications with patient who verbalized understanding. Copy of labs given to patient prior to DC. Patient taken down to spouse's car at [facility] via staff escort
and wheelchair.
--- NOTE | 2025-07-17 07:02 | W.DCSUMMARY ---
Discharge Summary
Discharge Data
Date of Admission: 07/14/25
Date of Discharge: 07/16/25
-
Pending Results: No
Hospital Course
54 years old male presented with right upper extremity tingling and discomfort. Patient had recent PICC line placement for chronic left hip infection. He was receiving intravenous daptomycin. Ultrasound showed DVT. Patient was started on
intravenous heparin. Hematology was consulted and recommended oral anticoagulant therapy and outpatient follow-up. Patient tolerated intravenous heparin. Right PICC line was removed without complication. Patient started to feel better with slow
resolution of tingling and discomfort. Oral anticoagulation therapy options were discussed with patient and his and they chose Eliquis. They verbalized understanding of the potential benefits and risk of systemic anticoagulation. Patient was
seen by ID doctor. Recommended to continue treatment for infection of the prosthetic hip. Patient had a spacer and per records, infection was consistent with Cutibacterium acnes infection. Patient is a primary ID doctor Dr. Javi Garner
recommended switching to dalbavancin without need for replacement of a new PICC line.. Patient was informed that his new medicine was approved. Patient remained hemodynamic stable was discharged home in a stable condition to follow-up with
outpatient antibiotic treatment per his a primary ID doctor.
Discharge Plan
-
Patient Disposition: Home (Routine Discharge)
Discharge Diagnosis/Procedures: DVT in the right upper extremity
Take Eliquis 10 mg twice a day for 7 days then 5 mg twice a day after that
Diet: As tolerated
Referrals:
Trevor Gomez CRNP [Family Provider, General]
Richard Pritchard MD [Active, Hematology / Oncology] - in one month
Prescriptions:
New
Eliquis 5 mg tablet
5 mg PO BID Qty: 70 0RF
Rx Instructions:
To 10 mg twice daily for 7 days then 5 mg twice daily thereafter
Continued
ascorbic acid (vitamin C) [Vitamin C] 250 mg Tablet
250 mg PO DAILY
pantoprazole [Protonix] 40 mg Tablet,Delayed Release (Dr/Ec)
40 mg PO BID
cholecalciferol (vitamin D3) [Vitamin D3] 10 mcg (400 unit) Tablet
10 mcg PO DAILY
Visbiome 112.5 billion cell Capsule
1 cap PO DAILY
Discontinued
meloxicam [Mobic] 15 mg Tablet
15 mg PO HS
aspirin 81 mg Tablet,Delayed Release (Dr/Ec)
81 mg PO BID
daptomycin 350 mg Recon Soln
600 mg IV DAILY@1000
Rx Instructions:
patient has 5 weeks remaining
Discharge Orders:
Discharge Patient (As Directed); Ordered 07/16/25
Ordered By: Adolfo Deleon
Discharge Date and Time
Discharge Date/Time: 07/16/25 16:40
Print Language: [place]EN[place]
== END 2025-07-16 16:40 | disposition home or self-care (01) | DRG 315 ==
LOC: 2 NORTH 14:41
PROVIDERS: Nurse Practitioner Acute Care; ADMITTING PHYSICIAN Internal Medicine; ATTENDING PHYSICIAN Internal Medicine; EMERGENCY PHYSICIAN Emergency Medicine; FAMILY PHYSICIAN Nurse Practitioner Family; OTHER PHYSICIAN Internal Medicine Hematology & Oncology; OTHER PHYSICIAN Internal Medicine Infectious Disease
DX: T82.868A Thrombosis due to vascular prosthetic devices, implants and grafts, initial encounter (principal); D62 Acute posthemorrhagic anemia; I82.611 Acute embolism and thrombosis of superficial veins of right upper extremity; Y83.1 Surgical operation with implant of artificial internal device as the cause of abnormal reaction of the patient, or of later complication, without mention of misadventure at the time of the procedure; T84.52XD Infection and inflammatory reaction due to internal left hip prosthesis, subsequent encounter; D64.9 Anemia, unspecified; G35.D Multiple sclerosis, unspecified; I25.10 Atherosclerotic heart disease of native coronary artery without angina pectoris; E78.00 Pure hypercholesterolemia, unspecified; I10 Essential (primary) hypertension; Z79.01 Long term (current) use of anticoagulants; Z79.82 Long term (current) use of aspirin; Z79.899 Other long term (current) drug therapy
CPT/HCPCS: 71046; 80053; 82550; 82607; 82728; 82746; 83090; 85025; 85610; 85652; 85730; 93005; 93971; 96374; 99285; J0878

== ENCOUNTER 2025-07-25 22:40 | Inpatient (IN) | payer BC, SELFPAY ==
[2025-07-25 16:21] VITALS: BP 129/84
[2025-07-25] MEDS: TYLENOL 1000 MG PO (16:31)
[2025-07-25 16:51] LABS: Hematocrit 40.6 % (39.0-52.0); Hemoglobin 13.4 g/dL (13.0-18.0); Mean Corp Hgb Conc. 33.0 g/dL (33.0-37.0); Mean Corpuscular Volume 86.0 fL (80.0-94.0); Nucleated Red Blood Cells % 0 % (-); Platelet Count 245 10^3/uL (130-400); Red Cell Dist. Width 14.0 % (11.5-14.5)
[2025-07-25 17:02] LABS: APTT 34.7 Sec (23.4-35.0)
[2025-07-25 17:05] LABS: ALT (SGPT) 51 U/L (0-50); AST (SGOT) 47 U/L (17-59); Albumin 4.5 g/dl (3.5-5.0); Alkaline Phosphatase 88 U/L (38-126); Blood Urea Nitrogen 28 mg/dl (9-20); Calcium 9.0 mg/dl (8.4-10.2); Carbon Dioxide 25 mmol/L (22-30); Chloride 99 mmol/L (98-107); Glucose 117 mg/dl (70-99); Potassium 4.0 mmol/L (3.5-5.1); Sodium 134 mmol/L (135-145); Total Protein 7.2 g/dl (6.3-8.2); eGFR > 60.00
[2025-07-25 17:16] LABS: COVID-19 Antigen Negative (Negative)
--- NOTE | 2025-07-25 17:57 | ED.GENMED ---
History of Present Illness
General
Chief Complaint: Cold/Flu/URI Symptoms
Time Seen by Provider: 07/25/25 17:57
History of Present Illness
History of Present Illness:
FOCUSED PAST MEDICAL HISTORY
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
REVIEW OF OLD RECORDS
- The patient came in 11 days ago to the hospital having a PICC line due to need for IV antibiotics for chronic left hip infection, when he was hospitalized he was receiving IV daptomycin and ultrasound also showed a DVT and was started on heparin,
right PICC line was removed. He was discharged on Eliquis. He was then switched to IV dalbavancin.
Note:
CHIEF COMPLAINT(S)
Cough, low-grade fever, elevated heart rate, and low blood oxygen saturation.
HISTORY OF PRESENT ILLNESS
The patient is a 54-year-old male with a recent history of right deep vein thrombosis (DVT) who presented with symptoms concerning for possible pulmonary embolism (PE). The patient started experiencing coughing and a low-grade fever. Notably, he had
an episode of flushing, sweating, and sputtering. His resting oxygen saturation is consistently around 91%, and his heart rate has been elevated, though specifics were not discussed. His blood pressure was reported to be lower than usual for most of
the day, with a recorded value of 120 mmHg. The patient expressed concern over the possibility of PE, especially given his past DVT history. Lactic acid levels were checked and found to be normal. He reported no shortness of breath at the time but
acknowledged it could be a risk due to his DVT. He is currently on apixaban (Eliquis), which was started last week during hospitalization.
PAST MEDICAL AND SURGICAL HISTORY
The patient had a left hip replacement in November 2023 after recovery from a right hip replacement in August 2023. He has an ongoing infection in the left hip, part of a two-stage surgical intervention. Initially, the patient experienced inadequate
recovery from the left hip surgery, leading to aggressive infection management at the [facility] in [place].
EXTERNAL RECORDS REVIEWED
Review of external records indicates the patient was on IV dalbavancin, including two doses administered last Tuesday and yesterday. Cultures and complete blood count (CBC) were unremarkable per available records. Prior tests showed negative
results for COVID-19 and influenza.
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
The patient mentioned living locally, although traveling to [place] for specialized treatment, suggesting a temporary potential barrier to immediate local care.
MEDICATIONS
- Apixaban (Eliquis), initiated last week during hospitalization.
- Dalbavancin IV, last administered yesterday.
REVIEW OF SYSTEMS
- Respiratory: Reports cough, low-grade fever. Resting oxygen saturation at 91%.
- Cardiovascular: Elevated heart rate, low blood pressure recorded at 120 mmHg.
- Musculoskeletal: History of hip replacement, infection managed specially in [place].
PHYSICAL EXAM
General: Alert, no acute distress.
Skin: Warm, dry.
Head: Normocephalic, atraumatic.
Neck: Supple, trachea midline.
Eyes, Ears, Nose, Mouth, and Throat: Oral mucosa moist.
Cardiovascular: Normal peripheral perfusion, No edema.
Respiratory: Respirations are non-labored.
Gastrointestinal: Abdomen nondistended.
Back: Normal range of motion, Normal alignment.
Musculoskeletal: Surgical wound/scar lateral proximal left thigh with no evidence of infection, no palpable abscess; mild soft tissue swelling right upper extremity
Neurological: Alert and oriented to person, place, time, and situation, No focal neurological deficit observed.
Psychiatric: Cooperative, appropriate mood & affect.
PROBLEM LIST
Acute:
- Possible pulmonary embolism.
- Current cough and low-grade fever.
- Right deep vein thrombosis.
- Left hip infection.
PLAN
- Proceed with a computed tomography (CT) scan of the lungs to rule out PE.
- Insert peripheral IV on the left side for imaging contrast; avoid right arm due to previous clot.
- Obtain urine sample if possible to rule out urinary infections, though no current symptoms reported.
- Order a respiratory virus panel, including flu and COVID-19 tests, despite earlier tests being negative.
- Continue anticoagulation with apixaban for DVT.
DIFFERENTIAL DIAGNOSIS
The Differential Diagnosis includes, in no particular order and is not limited to:
1. Pulmonary embolism
2. Pneumonia
3. Viral respiratory infection
4. Acute respiratory distress syndrome (ARDS)
5. Heart failure
6. Pulmonary hypertension
7. Exacerbation of chronic obstructive pulmonary disease (COPD)
8. Myocardial infarction
9. Pericarditis
10. Sepsis secondary to bacteremia or another focusregistrement
SUMMARY OF ENCOUNTER
The patient was seen in the emergency department due to a history suggestive of possible pulmonary embolism. A CT scan was conducted, which showed no blood clot in the lungs, thus ruling out pulmonary embolism. However, the CT scan revealed an area
in the lung concerning for pneumonia despite the patient being on antimicrobial therapy with dalbavancin. An infectious diseases specialist is involved in the ongoing care.
MANAGEMENT OF THE PATIENTS CARE WAS DISCUSSED WITH
Discussion of management with the patients infectious disease doctor located in [place] was initiated, with plans to communicate further with them to discuss the findings and management plan.
INDEPENDENT REVIEW OF LABS AND INTERPRETATION OF TESTS
My independent interpretation of the CT scan shows no pulmonary embolism; however, there is a concerning area for pneumonia.
MEDICAL DECISION MAKING
-Complexity of Data Reviewed: Chronic conditions affecting care: right deep vein thrombosis, left hip infection.
Differential diagnosis list included:
1. Pulmonary embolism
2. Pneumonia
3. Viral respiratory infection
4. Acute respiratory distress syndrome (ARDS)
5. Heart failure
6. Pulmonary hypertension
7. Exacerbation of chronic obstructive pulmonary disease (COPD)
8. Myocardial infarction
9. Pericarditis
10. Sepsis secondary to bacteremia or another focus
-Data:
Category 1
My independent interpretation of the CT scan indicates no pulmonary embolism, but there is a concerning area for pneumonia.
Category 3
Discussion of management with the infectious disease doctor.
DIAGNOSIS
Pneumonia
RADIOLOGY
- CTA obtained which shows no PE but does show pneumonia
EKG
- Sinus 108, nonspecific ST abnormality
LABS
- White count 5.1, hemoglobin normal, lactic 1.3, chemistries unremarkable, COVID and flu negative
UPDATE
- CTA no PE
- (+) Pneumonia
- Planning admit given the hypoxia / high fevers
- Spoke to his ID in [facility], Dr. Garner, cell [phone], who agrees w/ Cefepime; no need for Vanc (already on Dalvance)
- Spoke to Dr. Park - recommends testing legionella and adding Azithromycin
- Family requests private room
Past History
Past History
ED Past Medical History: HTN, Hypercholesterolemia and Other (MS)
ED Past Surgical History: Orthopedic
Social History
Tobacco: Non-smoker
Alcohol: Occasional
Drug: None
Personal:
Living: with family
Employment: Employed
Family History
Family History: Other (Noncontributory)
Phy Exam
Physical Exam
Physical Exam:
See HPI
Sepsis
Sepsis Screening
Sepsis Assessment: Sepsis Ruled Out
Sepsis Screen
Sepsis Screen: Sepsis Ruled Out
Date: 07/25/25
Time: 21:28
Course
Orders/Labs/Results
Orders:
Orders
07/25/25 16:25
Electrocardiogram (*1) Urgent
Reason for Study: Tachycardia
EKG- Treatment ONCE
07/25/25 16:28
Acetaminophen [Tylenol] 1,000 mg .ROUTE .STK-MED ONE
07/25/25 16:31
Acetaminophen [Tylenol] 1,000 mg PO NOW STA
07/25/25 16:38
COVID-19 Antigen Urgent
Source: Nasal Swab
Complete Blood Count/With Diff Urgent
Comprehensive Metabolic Panel Urgent
Lactic Acid Urgent
PTT Urgent
Blood Culture Urgent
RADHA Source: Blood/Venous
Specimen Description:
Influenza A+B Rapid Molecular Urgent
RADHA Source: Nasal Swab
Specimen Description:
07/25/25 18:11
CT Chest PE Study Urgent
Comment:
Reason For Exam: recent DVT, hypoxia and fevers
07/25/25 21:03
Legionella Urinary Antigen Urgent
RADHA Source: Urine
Specimen Description:
Azithromycin 500 mg/250 ml [Zithromax Infusion] 500 mg in 250 ml IV NOW
07/25/25 21:25
Cefepime HCl [Maxipime] 1,000 mg IV NOW STA
Abnormal Lab Results
07/25/25
16:38
Absolute Lymphs (auto) 1.1 L 10^3/uL
(1.2-3.4)
Monocytes % 10.7 H %
(1.7-9.3)
Sodium 134 L mmol/L
(135-145)
BUN 28 H mg/dl
(9-20)
Glucose 117 H mg/dl
(70-99)
ALT 51 H U/L
(0-50)
07/25/25 16:38
07/25/25 16:38
Vital Signs
Initial and Last Documented VS:
Initial Vital Signs
Temp Pulse Resp BP Pulse Ox
39.3 C H 106 16 129/84 94
07/25/25 16:21 07/25/25 16:21 07/25/25 16:21 07/25/25 16:21 07/25/25 16:21
Last Documented Vital Signs
Temp Pulse Resp BP Pulse Ox
39.3 C H 90 18 129/84 92
07/25/25 16:21 07/25/25 18:45 07/25/25 19:08 07/25/25 16:21 07/25/25 18:45
*Pulse Oximetry
SaO2: 94
Oxygen Mode of Delivery: Room air
Patient hypoxic: yes (Room air sats around 91%)
*Critical Care Note
Total Time (30-74mins, 75-104mins- exclusive of procedures): Not Applicable
ED Attending Note
-
Portions of this chart may have been created with voice recognition software.� Occasional wrong word or��sound alike� substitutions may have occurred due to the inherent limitations of voice recognition software.
Discharge Plan
Departure
Patient Disposition: Admit
Date of Disposition: 07/25/25
Time of Disposition: 21:04
Presentation/result/management discussed w/ accepting MD/DO: Hospitalist
Discharge Problem:
Pneumonia
Prescriptions:
No Action
Eliquis 5 mg tablet
5 mg PO BID Qty: 70 0RF
Rx Instructions:
To 10 mg twice daily for 7 days then 5 mg twice daily thereafter
ascorbic acid (vitamin C) [Vitamin C] 250 mg Tablet
250 mg PO DAILY
pantoprazole [Protonix] 40 mg Tablet,Delayed Release (Dr/Ec)
40 mg PO BID
cholecalciferol (vitamin D3) [Vitamin D3] 10 mcg (400 unit) Tablet
10 mcg PO DAILY
Visbiome 112.5 billion cell Capsule
1 cap PO DAILY
Referrals:
Trevor Gomez CRNP [Family Provider, General]
Interventions
Interventions:
*General Assessment Last Done: 07/25/25 18:16
*Neglect/Abuse Screening Last Done: 07/25/25 18:16
*ED COVID-19 Vaccine History Last Done: 07/25/25 18:16
*ED Influenza Vaccine History Last Done: 07/25/25 18:16
[facility] Risk Assessment Tool Last Done: 07/25/25 18:51
*Risk Screen - Suicide (C-SSRS) Last Done: 07/25/25 16:21
ED- Pulmonary Assessment Last Done: 07/25/25 18:48
Discharge Date and Time
Print Language: EAST [place]OR[place]
[2025-07-25 18:16] VITALS: BMI 30.5
[2025-07-25] MEDS: ZITHROMAX INFUSION 250 IV (21:20)
[2025-07-25] MEDS: MAXIPIME 1000 MG IV (21:33)
--- NOTE | 2025-07-25 21:35 | HPS.HSE ---
Family Physician
-
Family Physician: ROSALBA Milligan
Chief Complaint
-
cough, fever
History of Present Illness
54-year-old male with a recent history of right deep vein thrombosis, GERD, left hip prosthetic joint infection on iv abx presented to us with non productive dry cough, fever of 102 for past 2 days.
he had an episode of flushing, sweating and almost passed out yesterday. His resting oxygen saturation is consistently around 91%, and his heart rate has been elevated in 100's abd SBP was in 110's. patient denied chest pain, sob. denied BOWLES.
denied abdominal pain,n,v,d. he complained of poor appetite. denied dysuria or hematuria.
noted to have pneumonia on chest x ray .iv cefepime and zithro in ER. admitting for further management.
Medical History
Past Medical History
Past Medical History: Reports Other
Additional Past Medical History:
MS,cyst of kidney,HLD
CAD
Past Surgical History: Reports Other
Additional Past Surgical History:
b/l RAKESH
Social History
Tobacco: Non-smoker
Alcohol: Occasional
Drug: None
Personal:
Living: With Family
Family History
Family History: Not pertinent
Allergies / Home Medications
Allergies reflects when Allergies were last updated in [facility].
Home Medications with original date entered in [facility]
Allergy/Medication List:
Allergies
Allergy/AdvReac Type Severity Reaction Status Date / Time
adhesive Allergy Rash Verified 07/25/25 16:24
NKA - No Known Allergies Allergy Unknown Uncoded 07/25/25 16:24
Home Medications
Lactobac no.2-Bifidobac no.1-S. thermo 112.5 billion cell capsule (Visbiome) 1 cap PO DAILY Supplement 07/14/25
apixaban 5 mg tablet (Eliquis) 5 mg PO BID #70 tabs 07/14/25
ascorbic acid (vitamin C) 250 mg tablet (Vitamin C) 250 mg PO DAILY Supplement 07/14/25
cholecalciferol (vitamin D3) 10 mcg (400 unit) tablet (Vitamin D3) 10 mcg PO DAILY Supplement 07/14/25
pantoprazole 40 mg tablet,delayed release (Protonix) 40 mg PO BID Gastrointestinal Issue 07/14/25
Review of Systems
-
Constitutional: Reports Fever
EENT: Reports No Symptoms
Respiratory: Reports Cough
Cardiac: Reports No Symptoms
Abdomen/GI: Reports No Symptoms
: Reports No Symptoms
Musculoskeletal: Reports No Symptoms
Skin: Reports No Symptoms
Neurological: Reports No Symptoms
Endocrine: Reports No Symptoms
Hematologic/Lymphatic: Reports No Symptoms
Psych: Reports No Symptoms
Physical Exam
Vital Signs
Vital Signs
Temp Pulse Resp BP Pulse Ox
102.8 F H 90 18 129/84 92
07/25/25 16:21 07/25/25 18:45 07/25/25 19:08 07/25/25 16:21 07/25/25 18:45
Physical Exam
General: Well Developed, Well Nourished and No Apparent Distress
HEENT: NormoCephalic, Moist mucous membranes and Atraumatic
Respiratory: Clear
Cardiac: S1/S2 and Regular Rhythm; No Murmur or Rub
GI: Soft, Non Tender, Non Distended and Normal Bowel Sounds; No Organomegaly
Rectal: Deferred by Provider
Musculoskeletal: No Clubbing, No Cyanosis and No Edema
Skin: No Rash
Neuro: AO x 3 and Nonfocal/grossly intact
Psych: Calm
Laboratory Results
-
07/25/25 16:38
07/25/25 16:38
Laboratory Results
APTT 34.7 Sec (23.4-35.0) 07/25/25 16:38
Lactic Acid 1.3 mmol/L (0.7-2.0) 07/25/25 16:38
Total Bilirubin 0.7 mg/dl (0.2-1.3) 07/25/25 16:38
AST 47 U/L (17-59) 07/25/25 16:38
ALT 51 U/L (0-50) H 07/25/25 16:38
Alkaline Phosphatase 88 U/L (38-126) 07/25/25 16:38
Data Reviewed
-
Diagnostic Radiology: Report Reviewed by me
Lab Data: Labs Reviewed by me
Impression/Plan
-
#cough/congestion secondary to LLL pneumonia
-iv cefepime an zithro
-urine legionella and strep pneumoniae
-Tylenol prn for fever
-Mucinex for cough
-ID consulted
-chest CT with There is a consolidation with surrounding groundglass opacities within the posterior left lower lobe which likely represents pneumonia. There are additional opacities within the posterior right lower lobe which has an appearance more
characteristic of atelectasis.
#Cutibacterium acne infection
#left hip PJI
-S/p explantation with spacer placement (07/01/2025
-IV dalbavancin got 2 dose in last two weeks.
#DVT provoked in the setting right UE PICC line placed at [facility] and [facility] for home Dapto infusion after left hip revision
-on eliquis
#Multiple sclerosis:
- Mild disease, not on disease modifying therapy
# Vitamin B12 deficiency
- oral vitamin.
#DVT prophylaxis:eliquis
#CODE STATUS: Full code
--- NOTE | 2025-07-25 21:53 | W.PN.UPDATE ---
Update Note
Progress Note Update
Patient seen in conjunction with nurse practitioner, I agree with the findings on exam physical and concur with assessment and plan.
This is a 54-year-old male with past medical history significant for CAD, multiple sclerosis, hyperlipidemia, recent diagnosis of left hip prostatic joint infection status post explantation with spacer placement on July 01 and currently on 6
weeks of antibiotics (currently on dalbavancin) presenting to the emergency department with fever tachycardia and hypoxia.
Patient was recently admitted with upper extremity DVT in the setting of a PICC line. PICC line was removed and patient placed on dalbavancin. 1st dose 1 week ago, 2nd and last dose given yesterday. Patient is currently on anticoagulation for a
DVT. He denies any further swelling. He denies any rash.
Patient/family reports fever starting yesterday. Mild fatigue and some mild uri symptoms but denies productive cough. He denies feeling SOB but spouse reports patient minimizes symptoms.
In the emergency department patient was febrile to 102.8, blood pressure was 129/84 with a pulse rate of 90 on oxygen saturation of 90% on room air. COVID test was negative, flu test was negative. CBC was completely unremarkable. Electrolytes
BUN/creatinine were all in normal range. Lactic acid was negative.
Patient had a CT PE study which was negative for PE but was found to have LLL lower lobe ground glass opacities consistent with pneumonia.
Assessment and plan
LLL Pneumonia in setting of chronic anticoagulation and antibiosis for a prosthetic joint infection. Hemodynamically stable. Oxygen saturation is in the low 90s on room air.
� Admit to MedSurg
� Blood cultures
� Viral panel negative
� Check urinary pneumococcal and streptococcal antigens
� Cefepime Q6 and azithromycin IV daily
� ID consulted, patient on dalbavancin, patient received last dose yesterday (
� Supportive measures with incentive spirometry, cough suppression and nebs as needed
DVT
� Continue apixaban
CODE STATUS�full code
[2025-07-26] VITALS (7 sets, daily range): BP systolic 114–131; BP diastolic 64–86; BMI 29.9
--- NOTE | 2025-07-26 00:15 | PTCARENOTE ---
Pt transferred to unit from ED via stretcher. Pt ambulated to bed with x 1 assist and rolling walker. Pt A & O x 3. VSS. Pt oriented to room. Call golden within reach. at bedside.
--- NOTE | 2025-07-26 00:15 | PTCARENOTE ---
Pt transferred to unit from ED via stretcher. Pt ambulated to bed with x 1 assist and rolling walker. Pt A & O x 3. VS stable, except for oral temp. of 102.9 F. [employer]ATION[employer] notified and PRN Tylenol administered. Pt oriented to room. Call golden within reach.
at bedside.
[2025-07-26] MEDS: NSS 1000 IV ×3 (00:58→14:59)
[2025-07-26] MEDS: TYLENOL 650 MG PO ×3 (01:06→18:29)
[2025-07-26] MEDS: MUCINEX 600 MG PO ×3 (01:06→20:19)
[2025-07-26] MEDS: TORADOL 15 MG IV (04:15)
[2025-07-26] MEDS: STERILE WATER FOR INJECTION 10 ML IV ×4 (04:16→21:43)
[2025-07-26] MEDS: MAXIPIME 1000 MG IV ×2 (04:16→12:14)
[2025-07-26 07:43] LABS: Hematocrit 36.9 % (39.0-52.0); Hemoglobin 12.2 g/dL (13.0-18.0); Mean Corp Hgb Conc. 33.1 g/dL (33.0-37.0); Mean Corpuscular Volume 84.2 fL (80.0-94.0); Platelet Count 188 10^3/uL (130-400); Red Cell Dist. Width 13.9 % (11.5-14.5)
[2025-07-26 08:34] LABS: Blood Urea Nitrogen 23 mg/dl (9-20); Calcium 8.6 mg/dl (8.4-10.2); Carbon Dioxide 20 mmol/L (22-30); Chloride 106 mmol/L (98-107); Estimated Creatinine Clearance 98 ml/min; Glucose 97 mg/dl (70-99); Potassium 4.0 mmol/L (3.5-5.1); Sodium 137 mmol/L (135-145); eGFR > 60.00
[2025-07-26] MEDS: VITAMIN D3 (cholecalciferol) 10 MCG PO (09:13)
[2025-07-26] MEDS: PROTONIX 40 MG PO (09:13)
[2025-07-26] MEDS: VISBIOME 1 CAP PO (09:13)
[2025-07-26] MEDS: ELIQUIS 5 MG PO ×2 (09:13→20:19)
[2025-07-26] MEDS: VITAMIN C 250 MG PO (09:13)
--- NOTE | 2025-07-26 10:00 | CON.ID ---
Addendum entered and electronically signed by Ruma Park MD 07/26/25 16:15:
I personally performed a history and physical exam of the patient and discussed management with the resident. I reviewed the resident's note and agree with the documented findings and plan of care HPI/CC.
Exam: Tc 101, tachycardic
Chest: L lower lobe crackles
Skin: papular rash on upper chest/shoulders and upper back
# LLL PNA
# Fever persists
# Rash - suspect ?cefepime
- Blood cx x 1 in ED pending
- Obtain 2 sets of bcx for current fever
- Urine legionella ag and strep ag negative - not sensitive test
- Replace cefepime with meropenem.
- Convert IV azithromycin to po.
- Trend temperature.
# New onset afib with RVR
- Cardiology following
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
I spoke to his Dr. Garner, his ID physician in [facility].
Pt initially was placed on broad-spectrum abx's Daptomycin and levofloxacin post-op when initial OR cx negative.
After discharge, OR cx turned positive with Cutibacterium acne. Dr. Garner dc'd the levofloxacin and continued with Daptomycin.
However, pt then developed PICC-associated DVT, Picc dc'd 07/16. Daptomycin replaced with Dalbavancin IV x 2 doses one week apart which he completed 07/24.
Original Note:
Consultation
-
Date/Time Consultation Requested: 07/26/25
Date/Time Consultation Performed: 07/26/25
Requesting Provider: Deedee Bedolla
Performing Provider: Dr. Ruma Park
Reason for Consultation: Pneumonia
Chief Complaint / Past History
Chief Complaint
Fever, weakness
History of Present Illness
54-year-old male with significant past medical history of MS, provoked right upper extremity DVT, and recent left hip prosthetic joint infection status post extraction with spacer placement on 07/01/2025 who recently finished 6-week course of
antibiotics presented to the ER with fevers and weakness.
The patient had his left hip replaced in August 2023 due to osteoarthritis with subsequent right hip replacement in November 2023 with [facility]. While in [place] [facility], he noticed some left hip discomfort
and went for a CAT scan at an urgent care. The results were discussed with his initial orthopedic who did not feel there was a significant issue with the scans at that time. Ultimately, he sought out second opinions and was eventually found to
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 He underwent explantation with spacer placement on 07/01/2025 with an orthopedic in [facility]. A PICC line was placed for a 6-week course of daptomycin on 07/05/2025. The
stated he was also on Levaquin at some point, but stopped due to knee pain and concerns of tendon side effect. On July 14, the patient presented to [place] ER with right upper extremity numbness and tingling. He was found to have a provoked
DVT in setting of PICC line, started on a heparin drip and later transitioned to Eliquis. The PICC line was removed and the decision to move to IV dalbavancin was made by the patient's primary infectious disease doctor Dr. Javi Garner in [facility]. He received his first dose of IV dalbavancin via peripheral line with home nursing 1 week ago and his second and last dose on 07/24/2025.
His stated she noticed him complaining of more fatigue on 07/23/25 evening. On 07/24/2025 that morning, he woke up to use the bathroom and proceeded to felt dizzy and lightheaded. He thought he was going to pass out. When his infusion nurse
came to the house, she noted his pulse ox to be 91%, HR up to 115, and blood pressure within normal range but on the lower side. Later that day, patient noted to have a fever of 102. He endorsed a slight dry cough with no phlegm production but
otherwise denied any runny nose, sore throat, sneezing, pleurisy, nausea, vomiting, diarrhea, hematuria, dysuria, rash. He has a central AC. He has no recent sick contacts. He has had no travel outside the country recently. He has been no tick
exposure that he is aware of. No recent exposure to dirty bodies of water. No recent episodes of choking. He works from home.
In the ED, he was noted to have a temperature of 102.8, HR 106, RR 16 and 94% on room air. WBC was 5.[address] PE revealed no pulmonary embolism however there was a consolidation with surrounding glass opacities within the posterior left
lobe which represents pneumonia. There are additional opacities within the posterior right lower lobe which has the appearance more characteristic of atelectasis. Blood cultures were taken, 2 L of fluid provided, and he was started on a cefepime
and azithromycin. Infectious disease was consulted to evaluate pneumonia in setting of long-term antibiotic use.
Past History
Past Medical History: Other
Additional Past Medical History:
MS, CAD, cyst of the kidney, hyperlipidemia
Past Surgical History: Other
Additional Past Surgical History:
Bilateral total hip arthroplasty
Allergy History:
adhesive Allergy (Verified 07/25/25 16:24)
Rash
NKA - No Known Allergies Allergy (Uncoded 07/25/25 16:24)
Unknown
Current Antibiotics:
Cefepime, azithromycin
Social History
Tobacco: Non-Smoker
Alcohol: Occasional
Drug: None
Personal:
Living: With Family
Employment: Other (Works from home)
Family History
Family History: Not Pertinent
Review of Systems
Review of Systems
General: Fever, Chills and Other (Flushing )
Respiratory: Cough
Neurological: Dizziness
All systems: All other systems were reviewed and were negative
Vital Signs
Temp Pulse Resp BP Pulse Ox
99.2 F 87 18 114/76 97
07/26/25 08:21 07/26/25 08:21 07/26/25 08:21 07/26/25 08:21 07/26/25 08:21
Physical Exam
Physical Exam
Constitutional: No Acute Distress and Comfortable
Cardiovascular: Regular Rate and S1/S2 (with PACs)
Pulmonary: Rales (slight rales in LLL )
Gastrointestinal: Soft, Non Tender, Non Distended and Normal Bowel Sounds
Skin: Warm and Dry
Neurological: AO x 3
Psychological: Calm
Lab / Diagnostic Study Results
07/26/25 06:54
07/26/25 06:54
Abs Immat Gran (auto) 0.0 10^3/uL (0-0.05) 07/25/25 16:38
Absolute Neuts (auto) 3.3 10^3/uL (1.4-6.5) 07/25/25 16:38
Absolute Lymphs (auto) 1.1 10^3/uL (1.2-3.4) L 07/25/25 16:38
Absolute Monos (auto) 0.5 10^3/uL (0.1-0.6) 07/25/25 16:38
Absolute Basos (auto) 0.0 10^3/uL (0-0.2) 07/25/25 16:38
Immature Gran % 0.2 % (0-0.5) 07/25/25 16:38
Neutrophils % 65.0 % (42.2-75.2) 07/25/25 16:38
Lymphocytes % 21.1 % (20.5-51.1) 07/25/25 16:38
Monocytes % 10.7 % (1.7-9.3) H 07/25/25 16:38
Eosinophils % 2.4 % (0-6) 07/25/25 16:38
Basophils % 0.6 % (0-2) 07/25/25 16:38
Lactic Acid 1.3 mmol/L (0.7-2.0) 07/25/25 16:38
Microbiology Results
Micro:
07/25/25 21:37 Streptococcus pneumoniae Antigen (M - Final
Urine Negative for Streptococcus pneumoniae antigen.
A negative result does not exclude infection with
Streptococcus pneumoniae. Clinical correlation is
recommended.
07/25/25 21:37 Legionella Urinary Antigen - Final
Urine Negative for Legionella pneumophila Serogroup 1 antigen.
A negative result does not rule out the possiblity of
Legionella infection due to other serogroups or species of
Legionella. Clinical correlation is recommended.
07/25/25 16:38 Influenza Types A & B (JULIA) - Final
Nasal Swab Negative for Influenza A & B, NAAT
Negative results must be combined with clinical observations
and patient history.
Nucleic Acid Amplification test (NAAT)performed on the
[employer] platform.
07/25/25 16:38 Blood Culture - Pending
Blood/Venous
Imaging:
CT chest PE study 07/25/2025:
IMPRESSION:
1. No evidence of central, lobar or segmental pulmonary embolism.
2. There is a consolidation with surrounding groundglass opacities within the posterior left lower lobe which likely represents pneumonia. There are additional opacities within the posterior right lower lobe which has an appearance more
characteristic of atelectasis.
Assessment / Plan
#Fever
#Left lower lobe consolidation concerning for pneumonia
#Provoked RUE DVT 07/14/25 on Eliquis
#Left prosthetic joint status post extraction and spacer placement recently finished IV antibiotic course
Prior to admission:
#MS
#CAD
#HLD
#Cystic kidney
#Bilateral total hip arthroplasty
Recommendations:
Fever
Left lower lobe consolidation concerning for pneumonia
-- Dalbavancin last dose on 07/24/2025 - does not cover gram-negative's or vancomycin-resistant Enterococcus
-- Recently in the hospital increasing risk of hospital-acquired pneumonia
-- COVID, flu, Legionella, strep pneumo all negative
-- No recent aspiration event
-- Check sputum culture
-- Currently on azithromycin IV and cefepime day 2. Transition to Azithromycin PO and meropenem as slight maculopapular rash noted across the patient's chest after cefepime administration.
-- May transition to levofloxacin at time of discharge pending cultures
-- Touch base with patient's ID doctor Dr. Javi Garner in [place] ([phone]) for further information. If he was on Levaquin at some point there may have been another bacteria that grew out.
Possible cephalosporin allergy
-- Maculopapular rash developed shortly after cefepime administration
-- He denies any itching, N/V/D, nor headache
-- He is not aware of being on cephalosporins in the past
-- Transition to meropenem
Monitor WBC and temperature curve
--- NOTE | 2025-07-26 13:00 | PTCARENOTE ---
Pt HR noted to be elevated at 145 bpm. MD aware EKG obtained & Tele placed as ordered. EKG-Afib RVR MD aware and Cardiology consulted. Pt then noted to be ST on Tele monitor. VSS. made aware. Bedside Echo ordered. Pt offers no complaints at this
time. See OCT.
--- NOTE | 2025-07-26 13:23 | CON.CAR ---
Addendum entered and electronically signed by Javi Alexandre MD 07/26/25 15:13:
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
- 54-year-old male with multiple sclerosis, hyperlipidemia, and right upper extremity DVT secondary to PICC line (diagnosed 07/14/2025, currently on Eliquis) admitted with fever; found to have left lower lobe pneumonia.
- Cardiology consulted for atrial fibrillation with RVR.
- Exam: Heart regular rate and rhythm normal S1-S2, no murmurs/rubs/gallops; lungs rhonchi left base.
- Patient spontaneously converted back to normal sinus rhythm on his own.
- Recommend starting Cardizem CD 120 mg daily.
- Continue Eliquis which was recently started for DVT.
- Echocardiogram today was unremarkable.
- Management of fever/pneumonia as per primary team.
- Patient can follow-up with Cardiology as an outpatient; will remain available on an as needed basis.
Original Note:
Consultation
Consultation Request
Date/Time Consultation Requested: 07/26/25 1p
Date/Time Consultation Performed: 07/26/25 1:15p
Requesting Provider: Dr. Montes De Oca
Performing Provider: ROSALBA Guzman for Dr. Alexandre
Reason for Consultation: Afib
Medical History
-
Chief Complaint: fever, weakness
History of Present Illness:
Mr. Sheppard is a 54 yo male with MS, RUE DVT 07/14/25 s/p PICC line on Eliquis, HLD, and left hip prosthetic joint infection s/p extraction with spacer placement on 07/01/2025 finished 6-week course of antibiotics, PICC removed, who presented to the ER
with fevers and weakness. Chest CT shows LLL ground glass opacities, likely PNA. He is admitted to the hospitalist service and we are consulted for new Afib today on EKG. Tele shows sinus tachycardia and he is asymptomatic.
Past Medical History
Past Medical History: Other (as above)
Past Surgical History: Orthopedic (b/l hip replacement )
Social History
Tobacco: Non-Smoker
Alcohol: Occasional
Personal:
Living: With Family
Employment: Employed
Family History
Family History: Reviewed & Not Pertinent and Other (father AAA in 60s )
Allergies / Home Medications
Allergy/AdvReac Type Severity Reaction Status Date / Time
adhesive Allergy Rash Verified 07/25/25 16:24
NKA - No Known Allergies Allergy Unknown Uncoded 07/25/25 16:24
�Medication �Instructions �Recorded �Confirmed �Type
Lactobac no.2-Bifidobac no.1-S. 1 cap PO DAILY Supplement 07/14/25 07/25/25 History
thermo 112.5 billion cell capsule
(Visbiome)
apixaban 5 mg tablet (Eliquis) 5 mg PO BID #70 tabs 07/14/25 07/25/25 Rx
ascorbic acid (vitamin C) 250 mg 250 mg PO DAILY Supplement 07/14/25 07/25/25 History
tablet (Vitamin C)
cholecalciferol (vitamin D3) 10 10 mcg PO DAILY Supplement 07/14/25 07/25/25 History
mcg (400 unit) tablet (Vitamin D3)
pantoprazole 40 mg tablet,delayed 40 mg PO BID Gastrointestinal Issue 07/14/25 07/25/25 History
release (Protonix)
mecobalamin (vitamin B12) 1,000 1,000 mcg PO DAILY Supplement 07/26/25 07/26/25 History
mcg chewable tablet (B12 Active)
rosuvastatin 10 mg PO DAILY High Cholesterol 07/26/25 07/26/25 History
Review of Systems
-
History Source: Patient
All other systems: Negative unless noted
Physical Exam
Vital Signs
Temp Pulse Resp BP Pulse Ox
101.1 F H 145 18 130/72 95
07/26/25 12:04 07/26/25 12:04 07/26/25 08:21 07/26/25 12:04 07/26/25 12:04
Lab Results
07/26/25 06:54
07/26/25 06:54
Physical Exam
General: Well Developed, Well Nourished and No Apparent Distress
HEENT: Normocephalic and Anicteric
Respiratory: Clear and Non Labored Respirations
Cardiac: S1/S2 and Regular Rhythm
Breast: Deferred by me
GI: Soft, Non Tender and Normal Bowel Sounds
Genito-urinary: Clear Urine
Musculoskeletal: No Edema
Skin: Warm and Dry
Neuro: AO x 3
Psych: Calm
Impression / Plan
-
Afib - new onset, paroxysmal, rapid rates 161 bpm.
- back to sinus tachycardia/sinus rhythm.
- will use PO Cardizem CD 120mg daily.
- [id number] score is 1 (CAD), on Eliquis for DVT, continue.
- check echo.
PNA - acute LLL on chest CT.
- fevers at home and in hospital.
- per hospitalist and ID following.
RUE DVT - on Eliquis 5mg BID, continue.
HLD - stable on Crestor 10mg daily, continue.
Elevated coronary calcium score - 21.
- on Crestor, continue.
Left hip prosthetic joint infection - s/p extraction with spacer placement on 07/01/2025, finished 6-week course of antibiotics.
- ID following.
- surgeon in [place].
MS - chronic, on meds.
Data Reviewed
-
EKG: Tracing Personally Visualized and interpreted (Afib 161 bpm )
Radiology: Report Reviewed by me (CXR: NAD)
CT Scan: Report Reviewed by me (chest: consolidation with surrounding groundglass opacities within the posterior left lower lobe which likely represents pneumonia. There are additional opacities within the posterior right lower lobe which has an
appearance more characteristic of atelectasis.)
Labs: Labs Reviewed by me
Old Records: Reviewed
--- NOTE | 2025-07-26 13:29 | W.PN.HOSP.TC ---
Today's Communication/Plan
-
See plan
Assessment / Plan
Assessment / Plan
Impression.
This is a 54-year-old male with past medical history significant for CAD, multiple sclerosis, hyperlipidemia, recent diagnosis of left hip prostatic joint infection status post explantation with spacer placement on July 01 and currently on 6
weeks of antibiotics (currently on dalbavancin) presenting to the emergency department with fever tachycardia and hypoxia.
Left lower lobe pneumonia, community-acquired.
Maculopapular rash with concern for cephalosporin allergy.
Atrial fibrillation with rapid ventricular response, new onset
Conditions prior to admission.
Recent hospitalization for right upper extremity DVT provoked by PICC line initiated on anticoagulation with Eliquis.
MTHFR gene mutation with potential for hypercoagulable state.
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
Multiple sclerosis on Copaxone.
Prediabetes.
Dyslipidemia.
Plan
Left lower lobe pneumonia.
Suspect community-acquired.
Febrile, with transient hypoxemia, although with no evidence of respiratory distress. Hemodynamically stable with no evidence of sepsis upon presentation
While on Dalvance for prosthetic joint infection, antibiotics broadened with addition of cefepime and azithromycin. Patient developed diffuse maculopapular rash. With concern for cefepime allergy initiated on meropenem.
Patient reports no dysphagia and at this point low clinical suspicion for aspiration.
Continue to monitor closely
Follow-up imaging as clinically appropriate
Left hip prosthetic joint infection status explant with spacer on 06/27/2025
Intraoperative culture reported with P acnes
Initially on daptomycin and given PICC line issues/DVT, transition to dalbavancin. Second injection given 07/24/2025.
Diffuse maculopapular rash over trunk with concern for allergic reaction to cefepime. Antibiotics changed to meropenem. Monitor closely
Atrial fibrillation with rapid ventricular response likely triggered by fever and infection. New onset.
No prior history of arrhythmias
Initiate IV Cardizem with bolus and titration
Cardiology evaluation
Echocardiogram ordered to be done with hopefully better control rate.
Thromboembolic prophylaxis:
Currently on Eliquis for left upper extremity DVT
[id number] 0 patient denies any history of cardiovascular disease, hypertension, CVA.
Left upper extremity DVT provoked by PICC line.
MTHFR gene mutation with potential for hypercoagulable state.
Continue anticoagulation with Eliquis
Update homocystine level
On oral B12 therapy
Eventually update left upper extremity Doppler prior to discontinuation of anticoagulation
Patient has scheduled outpatient follow-up with hematology oncology
Multiple sclerosis without exacerbation
On Copaxone [facility]
Anticipated Discharge: 24 - 48 hours
Subjective/Interval History
-
Date of Service: July 26, 2025
Objective Data
-
Labs:
Laboratory Results
07/26/25
06:54
WBC 4.4 L
Hgb 12.2 L
Hct 36.9 L
Plt Count 188 D
Sodium 137
Potassium 4.0
Chloride 106
Carbon Dioxide 20 L
BUN 23 H
Creatinine 0.9
Glucose 97
Calcium 8.6
Vital Signs:
Vital Signs
Temp Pulse Resp BP Pulse Ox
101.1 F H 145 18 130/72 95
07/26/25 12:04 07/26/25 12:04 07/26/25 08:21 07/26/25 12:04 07/26/25 12:04
Physical Exam
-
General: Well Developed and No Apparent Distress
HEENT: Normocephalic, Atraumatic and Moist Mucous Membranes
Respiratory: Clear to Auscultation
Cardiac: Regular Rhythm and S1/S2; Negative Murmur, Rub or Gallop
GI: Soft, Nontender, Nondistended and Normal Bowel Sounds; Negative Organomegaly
Rectal: Deferred by Provider
Musculoskeletal: No Clubbing, No Cyanosis and No Edema
Skin: Negative Rash
Neuro: Nonfocal/Grossly Intact
--- NOTE | 2025-07-26 14:57 | CM ---
Initial assessment completed with . Patient lives with his and 25 y/o son and male/female 20 y/o twins in a 2 story plus basement home with B/B on 2nd, 8 steps to enter. PRIEST patient was receiving services for IV/AB through [facility],
Last dose was completed on 07/24/25. He has RN PT/OT services with [facility]. In the home is a RW, W/C, SPC, crutches and SC. Patient with recent L hip revision, is 50% PWB on LLE. He uses crutches for ambulation. Does have HC POA. No VA
benefits. No psychiatric hospitalizations. PCP is [facility] in [facility]. Discharge POC: Anticipate home with resumption of [facility] RN, PT/OT. Currently on IV/AB. Watch for in-home IV/AB. Referral to
[facility] forwarded.
[2025-07-26] MEDS: CARDIZEM CD 120 MG PO (15:03)
[2025-07-26] MEDS: MERREM 500 MG IV ×2 (15:17→21:43)
[2025-07-26 15:49] LABS: Urine Character Clear (Clear)
[2025-07-26 18:09] LABS: Urine Squamous Cell 0-2 /LPF (Few)
[2025-07-26 18:10] LABS: Urine Red Blood Cell 0-2 /HPF (0-2); Urine White Cell 0-2 /HPF (0-5)
[2025-07-26] MEDS: PROTONIX PO (20:20)
[2025-07-27] VITALS (8 sets, daily range): BP systolic 108–141; BP diastolic 66–80; PULSE 77; O2SAT 96
[2025-07-27] MEDS: NSS 1000 IV ×4 (00:05→23:32)
[2025-07-27] MEDS: TYLENOL 650 MG PO (03:00)
[2025-07-27] MEDS: MERREM 500 MG IV ×4 (03:00→22:23)
[2025-07-27] MEDS: STERILE WATER FOR INJECTION 10 ML IV ×4 (03:01→22:23)
[2025-07-27 08:19] LABS: Hematocrit 35.4 % (39.0-52.0); Hemoglobin 11.7 g/dL (13.0-18.0); Mean Corp Hgb Conc. 33.1 g/dL (33.0-37.0); Mean Corpuscular Volume 84.7 fL (80.0-94.0); Nucleated Red Blood Cells % 0 % (-); Platelet Count 179 10^3/uL (130-400); Red Cell Dist. Width 14.0 % (11.5-14.5)
[2025-07-27] MEDS: ELIQUIS 5 MG PO ×2 (08:35→20:36)
[2025-07-27] MEDS: PROTONIX 40 MG PO (08:36)
[2025-07-27] MEDS: CARDIZEM CD 120 MG PO (08:36)
[2025-07-27] MEDS: VISBIOME 1 CAP PO (08:36)
[2025-07-27] MEDS: VITAMIN C 250 MG PO (08:36)
[2025-07-27] MEDS: VITAMIN D3 (cholecalciferol) 10 MCG PO (08:36)
[2025-07-27] MEDS: MUCINEX 600 MG PO ×2 (08:36→20:36)
[2025-07-27] MEDS: FLUSH (NSS) 2 FLUSH IV ×2 (10:12→15:35)
--- NOTE | 2025-07-27 10:16 | W.PN.ID1 ---
Date of Service
Date of Service: July 27, 2025
Today's Communication
See below.
Continue meropenem and azithromycin.
Assessment / Plan
# LLL PNA
# Fever persists - due to PNA vs ?drug fever
# Rash - ?cefepime vs recent long-acting dalbavancin.
+ eosinophilia
- Blood cx x 1 in ED neg to date
- 2 sets of bcx pending
- Urine legionella ag and strep ag negative - not sensitive test
- Sputum - poor specimen
- Continue meropenem and po azithromycin for now (d2)
- Trend temperature.
- Follow rash
# New onset afib with RVR
- Cardiology following
# Recent late left hip PJI s/p Stage 1 of 2 revision 07/01/25 in [facility]
# Recent provoked PICC -associated DVT
I spoke to his Dr. Garner, his ID physician in [facility] on 07/26.
Pt initially was placed on broad-spectrum abx's Daptomycin and levofloxacin post-op when initial OR cx negative.
After discharge, OR cx turned positive with Cutibacterium acne. Dr. Garner dc'd the levofloxacin and continued with Daptomycin.
However, pt then developed PICC-associated DVT, Picc dc'd 07/16. Daptomycin replaced with Dalbavancin IV x 2 doses one week apart which he completed 07/24.
Prior to admission:
#MS
#CAD
#HLD
#Cystic kidney
# Picc-associated DVT 07/14/25
#R total hip arthroplasty 11/2023
# L total hip arthroplasty 08/2023 -> C. acne PJI s/p removal 07/01/25
Chief Complaint
-: Fever, Pneumonia and Other
Subjective / Review of Systems
Feels slightly better overall.
Vital Signs / Physical Exam
Vital Signs
Vital Signs
Temp Pulse Resp BP Pulse Ox
99.2 F 78 18 115/70 93
07/27/25 08:14 07/27/25 08:14 07/27/25 08:14 07/27/25 08:14 07/27/25 08:14
Selected Entries
07/26/25
19:27 07/27/25
04:00
Temp T max 102.8 F H 100.4 F H
Physical Exam
Constitutional: No Acute Distress and Comfortable
Eyes: No Conjunctival Hemorrhage and Sclera Anicteric
Cardiovascular: Regular Rate and S1/S2
Pulmonary: Clear; Negative Rales
Gastrointestinal: Soft, Non Tender, Non Distended and Normal Bowel Sounds
Extremities: Negative Edema
Skin: Rash (Maculopapular rash upper chest and posterior torso slight progression)
Neurological: AO x 3
Objective Data
Lab Data
Lab Results
07/27/25 08:01
APTT 34.7 Sec (23.4-35.0) 07/25/25 16:38
Estimated Creat Clear 98 ml/min 07/26/25 06:54
Lactic Acid 1.3 mmol/L (0.7-2.0) 07/25/25 16:38
Total Bilirubin 0.7 mg/dl (0.2-1.3) 07/25/25 16:38
AST 47 U/L (17-59) 07/25/25 16:38
ALT 51 U/L (0-50) H 07/25/25 16:38
Alkaline Phosphatase 88 U/L (38-126) 07/25/25 16:38
Most recent labs reviewed.
Micro Results:
07/27/25 09:14 Respiratory Culture - Pending
Sputum Gram Stain - Pending
07/27/25 08:01 Blood Culture - Pending
Blood/Venous
07/26/25 15:13 Respiratory Culture - Final
Sputum Gram Stain - Final
07/25/25 16:38 Blood Culture - Preliminary
Blood/Venous No Growth in 24 hours- Final report to follow
07/26/25 14:46 Blood Culture - Pending
Blood/Venous
07/25/25 21:37 Streptococcus pneumoniae Antigen (M - Final
Urine Negative for Streptococcus pneumoniae antigen.
A negative result does not exclude infection with
Streptococcus pneumoniae. Clinical correlation is
recommended.
07/25/25 21:37 Legionella Urinary Antigen - Final
Urine Negative for Legionella pneumophila Serogroup 1 antigen.
A negative result does not rule out the possiblity of
Legionella infection due to other serogroups or species of
Legionella. Clinical correlation is recommended.
07/25/25 16:38 Influenza Types A & B (JULIA) - Final
Nasal Swab Negative for Influenza A & B, NAAT
Negative results must be combined with clinical observations
and patient history.
Nucleic Acid Amplification test (NAAT)performed on the
[employer] platform.
Imaging:
CT chest PE study 07/25/2025:
IMPRESSION:
1. No evidence of central, lobar or segmental pulmonary embolism.
2. There is a consolidation with surrounding groundglass opacities within the posterior left lower lobe which likely represents pneumonia. There are additional opacities within the posterior right lower lobe which has an appearance more
characteristic of atelectasis.
[2025-07-27 10:18] LABS: ALT (SGPT) 72 U/L (0-50); AST (SGOT) 55 U/L (17-59); Albumin 3.5 g/dl (3.5-5.0); Alkaline Phosphatase 86 U/L (38-126); Blood Urea Nitrogen 14 mg/dl (9-20); Calcium 8.6 mg/dl (8.4-10.2); Carbon Dioxide 23 mmol/L (22-30); Chloride 109 mmol/L (98-107); Estimated Creatinine Clearance 110 ml/min; Glucose 96 mg/dl (70-99); Potassium 4.2 mmol/L (3.5-5.1); Sodium 136 mmol/L (135-145); Total Protein 6.0 g/dl (6.3-8.2); eGFR > 60.00
[2025-07-27 10:50] LABS: Glycohemoglobin (HgbA1c) 5.3 % (4.0-5.9)
--- NOTE | 2025-07-27 13:11 | W.PN.HOSP.TC ---
Today's Communication/Plan
-
Assessment / Plan
Assessment / Plan
General: No Apparent Distress, Comfortable and Conversant
HEENT: NormoCephalic, Moist mucous membranes, Atraumatic
Respiratory: Clear and Non Labored Respirations
Cardiac: S1/S2 and Regular Rhythm; No Rub or Gallop
GI: Soft, Non Tender, Non Distended and Normal Bowel Sounds
Musculoskeletal: No Edema, no deformity
: NO Jarrett
Neuro: Awake, Alert, Nonfocal/grossly intact
Psych: Calm and Intact Judgment/Insight
Impression.
This is a 54-year-old male with past medical history significant for CAD, multiple sclerosis, hyperlipidemia, recent diagnosis of left hip prostatic joint infection status post explantation with spacer placement on July 01 and currently on 6
weeks of antibiotics (currently on dalbavancin) presenting to the emergency department with fever tachycardia and hypoxia.
Left lower lobe pneumonia, community-acquired.
Maculopapular rash with concern for cephalosporin allergy.
Atrial fibrillation with rapid ventricular response, new onset
Conditions prior to admission.
Recent hospitalization for right upper extremity DVT provoked by PICC line initiated on anticoagulation with Eliquis.
MTHFR gene mutation with potential for hypercoagulable state.
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
Multiple sclerosis on Copaxone.
Prediabetes.
Dyslipidemia.
Plan
Left lower lobe pneumonia.
Suspect community-acquired.
Febrile, with transient hypoxemia, although with no evidence of respiratory distress. Hemodynamically stable with no evidence of sepsis upon presentation
While on Dalvance for prosthetic joint infection, antibiotics broadened with addition of cefepime and azithromycin. Patient developed diffuse maculopapular rash. With concern for cefepime allergy initiated on meropenem.
Patient reports no dysphagia and at this point low clinical suspicion for aspiration.
Continue to monitor closely
Follow-up imaging as clinically appropriate
Left hip prosthetic joint infection status explant with spacer on 06/27/2025
Intraoperative culture reported with P acnes
Initially on daptomycin and given PICC line issues/DVT, transition to dalbavancin. Second injection given 07/24/2025.
Diffuse maculopapular rash over trunk with concern for allergic reaction to cefepime. Antibiotics changed to meropenem and azithromycin. Monitor closely
Continues with to be intermittently febrile, possibly drug fever?
Blood cultures remain negative
Hemodynamically and clinically stable
Atrial fibrillation with rapid ventricular response likely triggered by fever and infection. New onset.
No prior history of arrhythmias
Initiate IV Cardizem with bolus and titration
Cardiology evaluation
Echocardiogram ordered to be done with hopefully better control rate.
Thromboembolic prophylaxis:
Currently on Eliquis for left upper extremity DVT
[id number] 0 patient denies any history of cardiovascular disease, hypertension, CVA.
Right upper extremity DVT provoked by PICC line.
MTHFR gene mutation with potential for hypercoagulable state.
Continue anticoagulation with Eliquis
Update homocystine level
On oral B12 therapy
Eventually update left upper extremity Doppler prior to discontinuation of anticoagulation
Patient has scheduled outpatient follow-up with hematology oncology
Multiple sclerosis without exacerbation
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
Anticipated Discharge: > 48 hours
Subjective/Interval History
-
Date of Service: July 27, 2025
Patient was seen and examined at bedside this morning. Feeling okay but still intermittently febrile.
Objective Data
-
Labs:
Laboratory Results
07/27/25
08:01
WBC 4.2 L
Hgb 11.7 L
Hct 35.4 L
Plt Count 179
Sodium 136
Potassium 4.2
Chloride 109 H
Carbon Dioxide 23
BUN 14
Creatinine 0.8
Glucose 96
Calcium 8.6
Total Bilirubin 0.5
AST 55
ALT 72 H
Alkaline Phosphatase 86
Vital Signs:
Vital Signs
Temp Pulse Resp BP Pulse Ox
99.4 F 80 18 113/66 97
07/27/25 11:27 07/27/25 11:27 07/27/25 11:27 07/27/25 11:27 07/27/25 11:27
I&O
07/26/25 07/27/25 07/28/25
06:59 06:59 06:59
Output Total 1325 / 1325
Balance -1325 / -1325
Review of Systems
-
History Source: Patient
All other systems: Reviewed and negative
Physical Exam
-
General: No Apparent Distress
[2025-07-27] MEDS: ZITHROMAX 500 MG PO (15:39)
[2025-07-27] MEDS: BENADRYL 50 MG PO (22:27)
[2025-07-27] MEDS: ANESTHETIC LOZENGE 1 LOZENGE PO (23:29)
[2025-07-28] VITALS (11 sets, daily range): BP systolic 98–122; BP diastolic 63–89
[2025-07-28] MEDS: MERREM 500 MG IV ×2 (02:53→08:43)
[2025-07-28] MEDS: STERILE WATER FOR INJECTION 10 ML IV ×2 (02:53→08:42)
[2025-07-28] MEDS: TYLENOL 650 MG PO (03:14)
[2025-07-28] MEDS: CARDIZEM 5 MG IV (05:03)
--- NOTE | 2025-07-28 06:07 | PTCARENOTE ---
07/28: pt on tele monitor. rhythm read afib rvr with hr at 145. pt vitals assessed. audibly irregular heart sounds. VEIN PUMPER Tabitha Loera notified. iv cardizem given. pt still sustained afib rvr. hr 120-130s. cardizem gtt ordered. labs drawn.
[2025-07-28 06:18] LABS: Hematocrit 37.5 % (39.0-52.0); Hemoglobin 12.3 g/dL (13.0-18.0); Mean Corp Hgb Conc. 32.8 g/dL (33.0-37.0); Mean Corpuscular Volume 87.2 fL (80.0-94.0); Platelet Count 183 10^3/uL (130-400); Red Cell Dist. Width 13.7 % (11.5-14.5)
[2025-07-28] MEDS: CARDIZEM 125 IV ×2 (06:26→16:31)
--- NOTE | 2025-07-28 06:26 | W.PN.UPDATE ---
Update Note
Progress Note Update
Family concerned about patient and increasing rash. Benadryl given for rash/swelling. Concerned for DRESS syndrome. ID on board and aware of this and we redirected the family to discuss with them today. Went back into uncontrolled afib. Cardizem IV
5mg x1. Tylenol given. Temp from 102 to 99. Restart Cardizem infusion with HR 130s afib.�Tmax 102 overnight and down to 99 this am.
[2025-07-28 06:34] LABS: Magnesium 1.9 mg/dl (1.6-2.3)
[2025-07-28] MEDS: VITAMIN C 250 MG PO (08:39)
[2025-07-28] MEDS: MUCINEX 600 MG PO ×2 (08:39→19:49)
[2025-07-28] MEDS: CARDIZEM CD PO (08:39)
[2025-07-28] MEDS: VITAMIN D3 (cholecalciferol) 10 MCG PO (08:39)
[2025-07-28] MEDS: PROTONIX 40 MG PO (08:40)
[2025-07-28] MEDS: VISBIOME 1 CAP PO (08:41)
[2025-07-28] MEDS: ZITHROMAX 500 MG PO (08:42)
[2025-07-28] MEDS: ELIQUIS 5 MG PO ×2 (08:43→19:49)
[2025-07-28] MEDS: FLUSH (NSS) 2 FLUSH IV (08:45)
[2025-07-28] MEDS: NSS 1000 IV ×2 (08:48→16:27)
[2025-07-28 08:52] LABS: Nucleated Red Blood Cells % 0 % (-)
--- NOTE | 2025-07-28 09:35 | W.PN.ID1 ---
Addendum entered and electronically signed by Ruma Park MD 07/28/25 13:54:
Procalcitonin negative <0.05 which argues against bacterial PNA.
However, pt requesting abx coverage. Ordered short course levofloxacin which pt tolerated in the past.
Original Note:
Date of Service
Date of Service: July 28, 2025
Today's Communication
Start steroid.
See below.
Assessment / Plan
# DRESS: fever, eosinophilia (worse), rash
. Suspect due to recent long-acting dalbavancin
# LLL PNA vs lung involvement of DRESS
# Mildly elevated ALT, present on admission
- Fever persists and rash progressing despite off cefepime, so doubt cephalosporin allergy.
- Suspect DRESS from dalbavancin (last dose 07/24)
- Blood cx's neg to date.
- DC meropenem and azithromycin.
- Check procalcitonin to rule out bacterial PNA.
- Start prednisone 50mg po qd.
- Follow CBC/diff, CMP daily.
- Monitor clinically.
# New onset afib with RVR, now in sinus
- Cardiology following
# Recent late left hip PJI s/p Stage 1 of 2 revision 07/01/25 in [facility]
# Recent provoked PICC -associated DVT
I spoke to his Dr. Garner, his ID physician in [facility] on 07/26.
Pt initially was placed on broad-spectrum abx's Daptomycin and levofloxacin post-op when initial OR cx negative.
After discharge, OR cx turned positive with Cutibacterium acne. Dr. Garner dc'd the levofloxacin and continued with Daptomycin.
However, pt then developed PICC-associated DVT, Picc dc'd 07/16. Daptomycin replaced with Dalbavancin IV x 2 doses one week apart which he completed 07/24.
Prior to admission:
#MS
#CAD
#HLD
#Cystic kidney
# Picc-associated DVT 07/14/25
#R total hip arthroplasty 11/2023
# L total hip arthroplasty 08/2023 -> C. acne PJI s/p removal 07/01/25
Chief Complaint
-: Fever, Pneumonia and Other
Subjective / Review of Systems
at bedside.
Rash continues to progress, now on feet. Nonpruritic.
Vital Signs / Physical Exam
Vital Signs
Vital Signs
Temp Pulse Resp BP Pulse Ox
98.3 F 104 16 105/73 93
07/28/25 07:48 07/28/25 07:48 07/28/25 07:48 07/28/25 07:48 07/28/25 07:48
Physical Exam
Constitutional: No Acute Distress and Comfortable
Eyes: No Conjunctival Hemorrhage and Sclera Anicteric
Oropharyngeal: Benign; Negative Ulcers
Cardiovascular: S1/S2 (tachycardic)
Pulmonary: Rales (mild crackles left)
Gastrointestinal: Soft, Non Tender, Non Distended and Normal Bowel Sounds
Genito-Urinary: Negative CVA Tenderness
Extremities: Negative Edema
Skin: Rash (Maculopapular rash increase and progressing down to lower abdomen, entire back, bilateral feet)
Neurological: AO x 3
Objective Data
Lab Data
Lab Results
07/28/25 05:59
07/27/25 08:01
APTT 34.7 Sec (23.4-35.0) 07/25/25 16:38
Estimated Creat Clear 110 ml/min 07/27/25 08:01
Lactic Acid 1.3 mmol/L (0.7-2.0) 07/25/25 16:38
Total Bilirubin 0.5 mg/dl (0.2-1.3) 07/27/25 08:01
AST 55 U/L (17-59) 07/27/25 08:01
ALT 72 U/L (0-50) H 07/27/25 08:01
Alkaline Phosphatase 86 U/L (38-126) 07/27/25 08:01
Most recent labs reviewed.
Micro Results:
07/27/25 08:01 Blood Culture - Preliminary
Blood/Venous No Growth in 24 hours- Final report to follow
07/25/25 16:38 Blood Culture - Preliminary
Blood/Venous No Growth in 48 hours- Final report to follow
07/27/25 09:14 Respiratory Culture - Pending
Sputum Gram Stain - Preliminary
07/26/25 14:46 Blood Culture - Preliminary
Blood/Venous No Growth in 24 hours- Final report to follow
07/26/25 15:13 Respiratory Culture - Final
Sputum Gram Stain - Final
07/25/25 21:37 Streptococcus pneumoniae Antigen (M - Final
Urine Negative for Streptococcus pneumoniae antigen.
A negative result does not exclude infection with
Streptococcus pneumoniae. Clinical correlation is
recommended.
07/25/25 21:37 Legionella Urinary Antigen - Final
Urine Negative for Legionella pneumophila Serogroup 1 antigen.
A negative result does not rule out the possiblity of
Legionella infection due to other serogroups or species of
Legionella. Clinical correlation is recommended.
07/25/25 16:38 Influenza Types A & B (JULIA) - Final
Nasal Swab Negative for Influenza A & B, NAAT
Negative results must be combined with clinical observations
and patient history.
Nucleic Acid Amplification test (NAAT)performed on the
[employer] platform.
Imaging:
CT chest PE study 07/25/2025:
IMPRESSION:
1. No evidence of central, lobar or segmental pulmonary embolism.
2. There is a consolidation with surrounding groundglass opacities within the posterior left lower lobe which likely represents pneumonia. There are additional opacities within the posterior right lower lobe which has an appearance more
characteristic of atelectasis.
[2025-07-28 10:35] LABS: ALT (SGPT) 86 U/L (0-50); AST (SGOT) 66 U/L (17-59); Albumin 3.8 g/dl (3.5-5.0); Alkaline Phosphatase 102 U/L (38-126); Blood Urea Nitrogen 16 mg/dl (9-20); Calcium 8.8 mg/dl (8.4-10.2); Carbon Dioxide 21 mmol/L (22-30); Chloride 107 mmol/L (98-107); Estimated Creatinine Clearance > 125 ml/min; Glucose 104 mg/dl (70-99); Potassium 3.9 mmol/L (3.5-5.1); Sodium 137 mmol/L (135-145); Total Protein 6.4 g/dl (6.3-8.2); eGFR > 60.00
[2025-07-28] MEDS: DELTASONE 50 MG PO (10:44)
[2025-07-28 10:56] LABS: Procalcitonin < 0.05 ng/ml (0.0-0.25)
--- NOTE | 2025-07-28 11:03 | W.PN.CD ---
Today's Communication / Plan
-
- A-fib is a new diagnosis this admission; now recurrent with DRESS syndrome.
- Started on a Cardizem drip overnight; continue as heart rate is fairly controlled overall.
- Will likely need to increase PO Cardizem CD to 240 mg daily tomorrow.
- Management of DRESS syndrome as per primary team/ID.
Impression / Plan
-
Patient called to reevaluate patient for recurrent atrial fibrillation with RVR. Patient has now developed DRESS syndrome.
Recurrent PAF:
- A-fib is a new diagnosis this admission; now recurrent with DRESS syndrome.
- Started on a Cardizem drip overnight; continue as heart rate is fairly controlled overall.
- Will likely need to increase PO Cardizem CD to 240 mg daily tomorrow.
- Management of DRESS syndrome as per primary team/ID.
- [id number] score is 1 (CAD); on Eliquis for DVT, continue.
- Echocardiogram revealed normal cardiac function and no significant valvulopathy.
PNA - acute LLL on chest CT.
- Continue treatment as per hospitalist and ID.
RUE DVT - on Eliquis 5mg BID, continue.
HLD - stable on Crestor 10mg daily, continue.
Elevated coronary calcium score - 21.
- on Crestor, continue.
Left hip prosthetic joint infection - s/p extraction with spacer placement on 07/01/2025, finished 6-week course of antibiotics.
- ID following.
- surgeon in [place].
MS - chronic, on meds.
- Management as per primary hospitalist team.
Physical Exam
Vital Signs/Labs
Vital Signs
Temp Pulse Resp BP Pulse Ox
98.3 F 104 16 105/73 93
07/28/25 07:48 07/28/25 07:48 07/28/25 07:48 07/28/25 07:48 07/28/25 07:48
07/28/25 05:59
07/28/25 10:03
APTT 34.7 Sec (23.4-35.0) 07/25/25 16:38
Magnesium 1.9 mg/dl (1.6-2.3) 07/28/25 05:59
Physical Exam
Constitutional: No acute distress and Comfortable
EENT: Anicteric
Cardiovascular: Pedal edema is absent, Systolic murmur absent, Rhythm/rate is irregular and S1S2 is normal
Respiratory: Respiratory effort normal, Wheeze Absent and Rhonchi Present
GI: Soft
Neuro/Psych: AO x 3
Other: Skin (Diffuse maculopapular rash all over)
Data Reviewed
-
Date of Service: July 28, 2025
EKG: Tracing Personally Visualized and interpreted (Telemetry: A-fib)
Echo: Report Reviewed by me (07/26/2025: EF 60-65%; no significant valvular disease.)
Labs: Labs Reviewed by me
[2025-07-28] MEDS: LEVAQUIN 750 MG PO (14:23)
[2025-07-28 15:39] LABS: Glucose - Point of Care 151 mg/dl (70-99)
--- NOTE | 2025-07-28 15:54 | W.PN.HOSP.TC ---
Today's Communication/Plan
-
Assessment / Plan
Assessment / Plan
General: No Apparent Distress, Comfortable and Conversant
HEENT: NormoCephalic, Moist mucous membranes, Atraumatic
Respiratory: Equal chest rise, Non Labored Respirations
Cardiac: Irregular rhythm, heart rate around 110
GI: Nondistended
Musculoskeletal: No Edema, no deformity
: NO Jarrett
Neuro: Awake, Alert, Nonfocal/grossly intact
Psych: Calm and Intact Judgment/Insight
Impression.
This is a 54-year-old male with past medical history significant for CAD, multiple sclerosis, hyperlipidemia, recent diagnosis of left hip prostatic joint infection status post explantation with spacer placement on July 01 and currently on 6
weeks of antibiotics (currently on dalbavancin) presenting to the emergency department with fever tachycardia and hypoxia.
Left lower lobe pneumonia, community-acquired.
Maculopapular rash with concern for cephalosporin allergy.
Atrial fibrillation with rapid ventricular response, new onset
Conditions prior to admission.
Recent hospitalization for right upper extremity DVT provoked by PICC line initiated on anticoagulation with Eliquis.
MTHFR gene mutation with potential for hypercoagulable state.
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
Multiple sclerosis on Copaxone.
Prediabetes.
Dyslipidemia.
Plan
Left lower lobe pneumonia.
Suspect community-acquired.
Febrile, with transient hypoxemia, although with no evidence of respiratory distress. Hemodynamically stable with no evidence of sepsis upon presentation
While on Dalvance for prosthetic joint infection, antibiotics broadened with addition of cefepime and azithromycin. Patient developed diffuse maculopapular rash. With concern for cefepime allergy initiated on meropenem.
Patient reports no dysphagia and at this point low clinical suspicion for aspiration.
Continue to monitor closely
Follow-up imaging as clinically appropriate
Left hip prosthetic joint infection status explant with spacer on 06/27/2025
Intraoperative culture reported with P acnes
Initially on daptomycin and given PICC line issues/DVT, transition to dalbavancin. Second injection given 07/24/2025.
Diffuse maculopapular rash over trunk with concern for allergic reaction to cefepime. Antibiotics changed to meropenem and azithromycin. Monitor closely
Continues with to be intermittently febrile, possibly DRESS syndrome, meropenem and azithromycin discontinued, started steroids and Levaquin
Blood cultures remain negative
Hemodynamically and clinically stable
Atrial fibrillation with rapid ventricular response likely triggered by fever and infection. New onset.
No prior history of arrhythmias
Initiate IV Cardizem with bolus and titration
Cardiology evaluation
Echocardiogram ordered to be done with hopefully better control rate.
Thromboembolic prophylaxis:
Currently on Eliquis for left upper extremity DVT
[id number] 0 patient denies any history of cardiovascular disease, hypertension, CVA.
Diltiazem drip had been discontinued however back into rapid A-fib overnight and so diltiazem drip restarted
- Cardiology following, titrating to p.o. Cardizem
Right upper extremity DVT provoked by PICC line.
MTHFR gene mutation with potential for hypercoagulable state.
Continue anticoagulation with Eliquis
Update homocystine level
On oral B12 therapy
Eventually update left upper extremity Doppler prior to discontinuation of anticoagulation
Patient has scheduled outpatient follow-up with hematology oncology
Multiple sclerosis without exacerbation
On Copaxone BEEF RIBBER
Anticipated Discharge: > 48 hours
Subjective/Interval History
-
Date of Service: July 28, 2025
Patient was seen and examined at bedside. Back into uncontrolled A-fib overnight and restarted Cardizem drip.
Objective Data
-
Labs:
Laboratory Results
07/28/25 07/28/25
05:59 10:03
WBC 4.5 L
Hgb 12.3 L
Hct 37.5 L
Plt Count 183
Sodium 137
Potassium 3.9
Chloride 107
Carbon Dioxide 21 L
BUN 16
Creatinine 0.7
Glucose 104 H
Calcium 8.8
Total Bilirubin 0.6
AST 66 H
ALT 86 H
Alkaline Phosphatase 102
Vital Signs:
Vital Signs
Temp Pulse Resp BP Pulse Ox
98.8 F 132 16 98/81 96
07/28/25 15:08 07/28/25 15:08 07/28/25 15:08 07/28/25 15:08 07/28/25 15:08
I&O
07/27/25 07/28/25 07/29/25
06:59 06:59 06:59
Output Total 1325 / 1325 3150 / 3150
Balance -1325 / -1325 -3150 / -3150
Review of Systems
-
History Source: Patient
All other systems: Reviewed and negative
Constitutional: Reports Fatigue
Physical Exam
-
General: No Apparent Distress
--- NOTE | 2025-07-28 16:12 | W.PN.HOSP.TC ---
Today's Communication/Plan
-
see plan
Assessment / Plan
Assessment / Plan
Gen: NAD, AAOx3.
Eyes: EOMI, PERRLA, no scleral icterus.
Neck: supple.
CV: tachy, reg rhythm, +S1/S2, no m/r/g.
Resp: CTAB anteriorly, no rales, wheezes, or rhonchi.
Abd: +BS, soft, NT, ND
Skin: diffuse maculopapular rash
Neuro: CN 2-12 intact, non-focal.
Psych: Normal mood and affect.
07/26/25 14:46 Blood/Venous Blood Culture - Preliminary
No Growth in 48 hours- Final report to follow
07/27/25 09:14 Sputum Respiratory Culture - Preliminary
07/27/25 09:14 Sputum Gram Stain - Preliminary
07/27/25 08:01 Blood/Venous Blood Culture - Preliminary
No Growth in 24 hours- Final report to follow
07/25/25 16:38 Blood/Venous Blood Culture - Preliminary
No Growth in 48 hours- Final report to follow
07/26/25 15:13 Sputum Respiratory Culture - Final
07/26/25 15:13 Sputum Gram Stain - Final
07/25/25 21:37 Urine Streptococcus pneumoniae Antigen (M - Final
Negative for Streptococcus pneumoniae antigen.
A negative result does not exclude infection with
Streptococcus pneumoniae. Clinical correlation is
recommended.
07/25/25 21:37 Urine Legionella Urinary Antigen - Final
Negative for Legionella pneumophila Serogroup 1 antigen.
A negative result does not rule out the possiblity of
Legionella infection due to other serogroups or species of
Legionella. Clinical correlation is recommended.
07/25/25 16:38 Nasal Swab Influenza Types A & B (JULIA) - Final
Negative for Influenza A & B, NAAT
Negative results must be combined with clinical observations
and patient history.
Nucleic Acid Amplification test (NAAT)performed on the
[employer] platform.
CTA chest 07/25:
1. No evidence of central, lobar or segmental pulmonary embolism.
2. There is a consolidation with surrounding groundglass opacities within the posterior left lower lobe which likely represents pneumonia. There are additional opacities within the posterior right lower lobe which has an appearance more
characteristic of atelectasis.
Afib with RVR:
-currently on cardizem gtt due to afib with RVR which is non-titratable and currently at 10mg/hr
-current SBP 127
-physical exam with tachycardia but appears to be a regular rhythm. Currently tele with sinus tachy in the 130s. Note pt's RN reports pt has been in and out of afib most recently.
-transfer to IVU
-change cardizem gtt to titratable
-currently on NS @ 125cc/hr
-cont Eliquis
-Echo reviewed, EF 60-65%, nl RV sz/fxn, no significant valvular disease.
-pt confirms he has never had a h/o heart failure
-cardiology updated
-should pt stay in sinus tachycardia I would not see a reason to continue cardizem gtt beyond overnight
-cardiology notes that pt's Cardizem CD to be increased to 240mg tomorrow
LLL PNA:
-ID following and pt currently on Levaquin at 's request (procal NEG)
-note, concerns for DRESS syndrome (possibly due to dalbavancin versus cefepime) and patient is currently on prednisone
-all Cx data NEG as above, COVID/Flu NEG
RUE DVT:
-provoked by PICC line
-cont Eliquis
-CTA chest above, no PE
Case discussed at length with patient's nurse. Patient's updated extensively at bedside. All questions were asked and answered.
Total Critical Care Time 34 minutes. I was immediately available to the patient and staff. I personally examined, reviewed labs, diagnostic images/reports, interpretations, treatment plans, discussed patient care with other providers and family
or caregivers (if patient is unable to make decisions), entered orders as appropriate and documented the medical record.
Anticipated Discharge: > 48 hours
Subjective/Interval History
-
Date of Service: July 28, 2025
Called to bedside by nursing for rapid response. Currently patient reports some chest tightness related to his rapid heart rate which is mild. Denies any shortness of breath. Patient's is at bedside and was concerned about his rapid heart
rate.
Objective Data
-
Labs:
Laboratory Results
07/28/25 07/28/25 07/28/25
05:59 10:03 Unknown
WBC 4.5 L Pending
Hgb 12.3 L Pending
Hct 37.5 L Pending
Plt Count 183 Pending
Sodium 137 Pending
Potassium 3.9 Pending
Chloride 107 Pending
Carbon Dioxide 21 L Pending
BUN 16 Pending
Creatinine 0.7 Pending
Glucose 104 H Pending
Calcium 8.8 Pending
Total Bilirubin 0.6 Pending
AST 66 H Pending
ALT 86 H Pending
Alkaline Phosphatase 102 Pending
Vital Signs:
Vital Signs
Temp Pulse Resp BP Pulse Ox
98.8 F 132 16 98/81 96
07/28/25 15:08 07/28/25 15:08 07/28/25 15:08 07/28/25 15:08 07/28/25 15:08
I&O
07/27/25 07/28/25 07/29/25
06:59 06:59 06:59
Output Total 1325 / 1325 3150 / 3150
Balance -1325 / -1325 -3150 / -3150
[2025-07-28 16:26] LABS: ALT (SGPT) 107 U/L (0-50); AST (SGOT) 84 U/L (17-59); Albumin 4.4 g/dl (3.5-5.0); Alkaline Phosphatase 133 U/L (38-126); Blood Urea Nitrogen 18 mg/dl (9-20); Calcium 9.1 mg/dl (8.4-10.2); Carbon Dioxide 21 mmol/L (22-30); Chloride 104 mmol/L (98-107); Estimated Creatinine Clearance 110 ml/min; Glucose 153 mg/dl (70-99); Potassium 4.1 mmol/L (3.5-5.1); Sodium 136 mmol/L (135-145); Total Protein 7.3 g/dl (6.3-8.2); eGFR > 60.00
[2025-07-28 16:27] LABS: Hematocrit 42.8 % (39.0-52.0); Hemoglobin 14.6 g/dL (13.0-18.0); Mean Corp Hgb Conc. 34.1 g/dL (33.0-37.0); Mean Corpuscular Volume 82.8 fL (80.0-94.0); Platelet Count 207 10^3/uL (130-400); Red Cell Dist. Width 13.6 % (11.5-14.5)
[2025-07-28 16:37] LABS: Troponin I < 0.012 ng/ml
--- NOTE | 2025-07-28 18:11 | PTCARENOTE ---
Pt received from [facility] as a transfer to IVU. Pt ambulated from the stretcher with the walker and 1 assist. Room air sat 95%. Pt denies any chest pain or sob. IV cardizem infusing as ordered at 10mg. No change in status of body rash. Lungs clear.
Heart rate in the 90's to 130's. ST vs accelerated junt with periods of afib.
--- NOTE | 2025-07-28 20:07 | RR ---
A Rapid Response was called on this patient, please see Rapid Response form.
Pt presented with not feeling right with palpitations and flushed face. at bedside requesting a rapid to be called after doctors unavailable at the moment upon seeing his HR as as 130 on the monitor. His true HR was at [address] to NSR
of 98-105. Pt was trying to convert over to SR while on Cardizem gtt at 10ml/hr. She was not happy that a doctor was not able to be at the bedside of her while this was going on. It appears that she new the medical terminology but did not
disclose that she was a nurse to me but later to the doctor when asked. Cardiology and the Hospitalist was made aware of their concern. Also to help with the situation the hotel services supervisor was also made aware because the became highly agitated and
angered that she was not feeling comfort by not having a doctor at the bedside. She did not want to hear any reasonings brought forth from the nurse at this point so a rapid response was called to help the pt with his palpitations and high heart
rate that was not correctly noted on monitor which we were trying explain to her that it was picking up extra beats. She was not interested at this point in listening to any explanation. HR was not responding to the Cardizem gtt. Canelo BAEZ came
to floor to talk with pt and and pt then moved to higher level of care IVU. Last BP 127/77 HR 129, Glu 151 Pox 97% @2L 98.7. was then thankful for all the help we gave her and her after pt was transferred to IVU. Pt was stable
to be transferred to higher level of care,. Will cont to monitor.
--- NOTE | 2025-07-28 23:56 | PTCARENOTE ---
Received pt @ change of shift. HR 130s, other VSS-- Junctional/Sinus Tach on monitor. Pt denies palpitations @ this time. bedside. Cardizem gtt running @ 10 mL/hr through left forearm-- RN increased rate to 15 mL/hr. Discussed w/ pt about
balancing BP and HR. Pt verbalizes understanding. NSS running through left forearm @ 125 mL/hr. Rash present on feet and torso-- macular looking. Discussed plan of care. Pt verbalizes understanding. Plan of care ongoing. Call golden within reach.
[2025-07-29] VITALS (9 sets, daily range): BP systolic 93–125; BP diastolic 65–83
[2025-07-29] MEDS: NSS 1000 IV (00:13)
[2025-07-29 03:21] LABS: Hematocrit 34.1 % (39.0-52.0); Hemoglobin 11.6 g/dL (13.0-18.0); Mean Corp Hgb Conc. 34.0 g/dL (33.0-37.0); Mean Corpuscular Volume 83.4 fL (80.0-94.0); Nucleated Red Blood Cells % 0 % (-); Platelet Count 198 10^3/uL (130-400); Red Cell Dist. Width 13.4 % (11.5-14.5)
[2025-07-29 03:37] LABS: ALT (SGPT) 91 U/L (0-50); AST (SGOT) 66 U/L (17-59); Albumin 3.3 g/dl (3.5-5.0); Alkaline Phosphatase 103 U/L (38-126); Blood Urea Nitrogen 18 mg/dl (9-20); Calcium 8.7 mg/dl (8.4-10.2); Carbon Dioxide 22 mmol/L (22-30); Chloride 109 mmol/L (98-107); Estimated Creatinine Clearance > 125 ml/min; Glucose 124 mg/dl (70-99); Potassium 4.2 mmol/L (3.5-5.1); Sodium 138 mmol/L (135-145); Total Protein 5.8 g/dl (6.3-8.2); eGFR > 60.00
[2025-07-29] MEDS: ELIQUIS 5 MG PO ×2 (08:00→20:38)
[2025-07-29] MEDS: MUCINEX 600 MG PO ×2 (08:00→20:38)
[2025-07-29] MEDS: PROTONIX 40 MG PO (08:00)
[2025-07-29] MEDS: VISBIOME 1 CAP PO (08:00)
[2025-07-29] MEDS: LEVAQUIN 750 MG PO (08:00)
[2025-07-29] MEDS: VITAMIN D3 (cholecalciferol) 10 MCG PO (08:00)
[2025-07-29] MEDS: CARDIZEM CD 120 MG PO ×2 (08:00→09:52)
--- NOTE | 2025-07-29 08:07 | W.PN.CD ---
Today's Communication / Plan
-
PO Dilt ER 240 a day for at least 2-3 months before considering stopping
Eliquis/OAT not need for his AFib/Flutter => on for UE provoked DVT
Cardiology will sign off. Please call with questions.
Pt should see Dr. Bright 3-4 months
Impression / Plan
-
Patient called to reevaluate patient for recurrent atrial fibrillation with RVR. Patient has now developed DRESS syndrome.
Panel Instrument Repairer: MD Deangelo.
Newly found PAF and likely paroxysmal aflutter (type unknown: typical vs atypical
- Perhaps precipitated by his medical illness: DRESS
- Several paroxysms this admit
- Back to sinus with most recent episode between 2-3 AM today
- [id number] is 0 (or 1 if a minimal coronary calcium score). I would not give a point for a provoked DVT.
- Dilt drip => PO dilt
- Management of DRESS syndrome as per primary team/ID.
- [id number] score is 1 (CAD); on Eliquis for DVT, continue.
- Echocardiogram revealed normal cardiac function and no significant valvulopathy.
DRESS Syndrome suspected (Drug Reaction with Eosinophilia and Systemic Symptoms)
PNA - acute LLL on chest CT.
- Continue treatment as per hospitalist and ID.
- Lung changes might be part of DRESS per ID note)
Precipitated RUE DVT from a PICC - on Eliquis 5mg BID, continue.
HLD - stable on Crestor 10mg daily, continue.
Elevated coronary calcium score - 21.
- on Crestor, continue.
Left hip prosthetic joint infection
- s/p extraction with spacer placement on 07/01/2025, finished 6-week course of antibiotics.
- ID following.
- surgeon in [place].
MS - chronic, on meds.
- Management as per primary hospitalist team.
Prediabetes
Subjective: No CP or dyspnea.
Physical Exam
Vital Signs/Labs
Vital Signs
Temp Pulse Resp BP Pulse Ox
97.9 F 66 18 99/71 98
07/29/25 07:31 07/29/25 02:45 07/29/25 07:31 07/29/25 02:42 07/29/25 07:31
07/29/25 02:52
07/29/25 02:52
APTT 34.7 Sec (23.4-35.0) 07/25/25 16:38
Magnesium 1.9 mg/dl (1.6-2.3) 07/28/25 05:59
LAB Results
07/28/25
Unknown
Troponin I < 0.012
Physical Exam
Constitutional: No acute distress
EENT: Anicteric
Cardiovascular: Rhythm & rate is regular and Pedal edema is absent
Respiratory: Respiratory effort normal and Lungs clear to auscul.
GI: Soft and Distention absent
Neuro/Psych: AO x 3
Data Reviewed
-
Date of Service: July 29, 2025
[2025-07-29] MEDS: VITAMIN C 250 MG PO (08:10)
[2025-07-29] MEDS: DELTASONE 50 MG PO (08:10)
--- NOTE | 2025-07-29 11:04 | W.PN.ID1 ---
Date of Service
Date of Service: July 29, 2025
Today's Communication
Continue prednisone.
DC levofloxacin.
Assessment / Plan
# DRESS: fever, eosinophilia, rash
. Suspect due to recent long-acting dalbavancin
# LLL opacity lung involvement of DRESS
# Elevated LFT's could be due to DRESS, slightly improved.
- Suspect DRESS from long acting dalbavancin (last dose 07/24)
(Fever persisted and rash progressing despite off cefepime, so doubt cephalosporin allergy)
- Blood cx's neg to date.
- Prednisone 50mg qd started 07/28 with resolution of fever, rash improvement, resolution of eos
- s/p few days meropenem, azithromycin.
- Procalcitonin negative which argues against bacterial PNA.
DC levofloxacin (d2); agreeable per Dr. Montes De Oca
- Continue prednisone 50mg po qd.
- Follow CBC/diff, CMP daily.
- Monitor clinically.
# New onset afib with RVR, now in sinus
- Cardiology following
# Recent late left hip PJI s/p Stage 1 of 2 revision 07/01/25 in [facility]
# Recent provoked PICC -associated DVT
I spoke to his Dr. Garner, his ID physician in [facility] on 07/26.
Pt initially was placed on broad-spectrum abx's Daptomycin and levofloxacin post-op when initial OR cx negative.
After discharge, OR cx turned positive with Cutibacterium acne. Dr. Garner dc'd the levofloxacin and continued with Daptomycin.
However, pt then developed PICC-associated DVT, Picc dc'd 07/16. Daptomycin replaced with Dalbavancin IV x 2 doses one week apart which he completed 07/24.
Prior to admission:
#MS
#CAD
#HLD
#Cystic kidney
# Picc-associated DVT 07/14/25
#R total hip arthroplasty 11/2023
# L total hip arthroplasty 08/2023 -> C. acne PJI s/p removal 07/01/25
Chief Complaint
-: Fever and Other
Subjective / Review of Systems
Pt transferred to IVU yesterday due to afib with RVR.
Since steroid, rash has not progressed, no fever overnight, SOB/cough much improved.
Vital Signs / Physical Exam
Vital Signs
Vital Signs
Temp Pulse Resp BP Pulse Ox
97.9 F 82 18 110/72 96
07/29/25 07:31 07/29/25 07:45 07/29/25 07:31 07/29/25 07:30 07/29/25 08:00
Physical Exam
Constitutional: No Acute Distress and Comfortable
Eyes: No Conjunctival Hemorrhage and Sclera Anicteric
Oropharyngeal: Benign
Cardiovascular: Regular Rate and S1/S2
Pulmonary: Clear
Gastrointestinal: Soft, Non Tender, Non Distended and Normal Bowel Sounds
Genito-Urinary: Negative CVA Tenderness
Extremities: Negative Edema
Skin: Rash (Rash on bilateral foot decreased. Stable maculopapular rash on chest, abd, and posterior torso.)
Neurological: AO x 3
Objective Data
Lab Data
Lab Results
07/29/25 02:52
07/29/25 02:52
APTT 34.7 Sec (23.4-35.0) 07/25/25 16:38
Estimated Creat Clear > 125 ml/min 07/29/25 02:52
Lactic Acid 1.6 mmol/L (0.7-2.0) 07/28/25 Unknown
Total Bilirubin 0.4 mg/dl (0.2-1.3) 07/29/25 02:52
AST 66 U/L (17-59) H 07/29/25 02:52
ALT 91 U/L (0-50) H 07/29/25 02:52
Alkaline Phosphatase 103 U/L (38-126) 07/29/25 02:52
Most recent labs reviewed.
Micro Results:
07/27/25 08:01 Blood Culture - Preliminary
Blood/Venous No Growth in 48 hours- Final report to follow
07/25/25 16:38 Blood Culture - Preliminary
Blood/Venous No Growth in 72 hours- Final report to follow
07/26/25 14:46 Blood Culture - Preliminary
Blood/Venous No Growth in 48 hours- Final report to follow
07/27/25 09:14 Respiratory Culture - Preliminary
Sputum Gram Stain - Preliminary
07/26/25 15:13 Respiratory Culture - Final
Sputum Gram Stain - Final
07/25/25 21:37 Streptococcus pneumoniae Antigen (M - Final
Urine Negative for Streptococcus pneumoniae antigen.
A negative result does not exclude infection with
Streptococcus pneumoniae. Clinical correlation is
recommended.
07/25/25 21:37 Legionella Urinary Antigen - Final
Urine Negative for Legionella pneumophila Serogroup 1 antigen.
A negative result does not rule out the possiblity of
Legionella infection due to other serogroups or species of
Legionella. Clinical correlation is recommended.
07/25/25 16:38 Influenza Types A & B (JULIA) - Final
Nasal Swab Negative for Influenza A & B, NAAT
Negative results must be combined with clinical observations
and patient history.
Nucleic Acid Amplification test (NAAT)performed on the
[employer] platform.
Imaging:
CT chest PE study 07/25/2025:
IMPRESSION:
1. No evidence of central, lobar or segmental pulmonary embolism.
2. There is a consolidation with surrounding groundglass opacities within the posterior left lower lobe which likely represents pneumonia. There are additional opacities within the posterior right lower lobe which has an appearance more
characteristic of atelectasis.
Care Review
Plan reviewed with: Physician (Dr. Montes De Oca)
--- NOTE | 2025-07-29 11:17 | W.PN.HOSP.TC ---
Today's Communication/Plan
-
Continue prednisone
Follow CBC/CMP
Observe off antibiotics
Basal bolus protocol
Observe rate and rhythm while on oral Cardizem
Assessment / Plan
Assessment / Plan
Impression.
This is a 54-year-old male with past medical history significant for CAD, multiple sclerosis, hyperlipidemia, recent diagnosis of left hip prostatic joint infection status post explantation with spacer placement on July 01 and currently on 6
weeks of antibiotics (currently on dalbavancin) presenting to the emergency department with fever tachycardia and hypoxia.
Left lower lobe pneumonia, community-acquired.
Maculopapular rash with concern for cephalosporin allergy.
Atrial fibrillation with rapid ventricular response, new onset
Conditions prior to admission.
Recent hospitalization for right upper extremity DVT provoked by PICC line initiated on anticoagulation with Eliquis.
MTHFR gene mutation with potential for hypercoagulable state.
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
Multiple sclerosis on Copaxone.
Prediabetes.
Dyslipidemia.
Plan
DRESS syndrome
Suspected secondary to long-acting Dalvance. Less likely allergic to cefepime.
Presents with diffuse maculopapular rash, later with persistent fever (while on broad-spectrum antibiotics), refill is in the file and elevated transaminases, as well as transient hypoxia and bilateral left greater than right ground glass opacities
on CT scan of the chest.
Last dose of Dalvance given on 07/24/2025
Initiated on prednisone 50 mg daily (0.5 mg/kg)
Continue slow corticosteroid taper
Follow-up CBC and CMP
Left greater than right ground glass infiltrates.
No evidence for respiratory distress
Initial concern for community-acquired pneumonia, although retrospectively possible pulmonary manifestation of DRESS
Initially on cefepime, later changed to meropenem with concern for allergic reaction and later transition to Levaquin initiated on 07/28
Procalcitonin negative
Discussed with ID, and patient's .
With low suspicion for acute infection, will discontinue levofloxacin and monitor closely.
Left hip prosthetic joint infection status explant with spacer on 06/27/2025
Intraoperative culture reported with P acnes
Initially on daptomycin and given PICC line issues/DVT, transition to dalbavancin. Second injection given 07/24/2025.
Current plan is for antibiotic vacation.
Atrial fibrillation with rapid ventricular response likely triggered by fever and infection. New onset.
No prior history of arrhythmias
Initiate IV Cardizem with bolus and titration.
Converted to normal sinus rhythm
Transition to oral Cardizem 240 mg daily
Echocardiogram with preserved biventricular function and no evidence of valvular abnormalities
Thromboembolic prophylaxis:
Currently on Eliquis for left upper extremity DVT
[id number] 0 patient denies any history of cardiovascular disease, hypertension, CVA.
Left upper extremity DVT provoked by PICC line.
MTHFR gene mutation with potential for hypercoagulable state.
Continue anticoagulation with Eliquis
Update homocystine level
On oral B12 therapy
Eventually update left upper extremity Doppler prior to discontinuation of anticoagulation
Patient has scheduled outpatient follow-up with hematology oncology
Multiple sclerosis without exacerbation
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
Prediabetes
Not on glucose lowering medications prior to admission.
Currently on pulse dose of corticosteroids with expected hyperglycemia
Update hemoglobin A1c.
Start basal bolus protocol
Anticipated Discharge: 24 - 48 hours
Subjective/Interval History
-
Date of Service: July 29, 2025
Objective Data
-
Labs:
Laboratory Results
07/29/25
02:52
WBC 4.3 L
Hgb 11.6 L D
Hct 34.1 L
Plt Count 198
Sodium 138
Potassium 4.2
Chloride 109 H
Carbon Dioxide 22
BUN 18
Creatinine 0.7
Glucose 124 H
Calcium 8.7
Total Bilirubin 0.4
AST 66 H
ALT 91 H
Alkaline Phosphatase 103
Vital Signs:
Vital Signs
Temp Pulse Resp BP Pulse Ox
97.9 F 82 18 110/72 96
07/29/25 07:31 07/29/25 07:45 07/29/25 07:31 07/29/25 07:30 07/29/25 08:00
I&O
07/28/25 07/29/25 07/30/25
06:59 06:59 06:59
Output Total 3150 / 3150 550 / 550
Balance -3150 / -3150 -550 / -550
Physical Exam
-
General: Well Developed and No Apparent Distress
HEENT: Normocephalic, Atraumatic and Moist Mucous Membranes
Respiratory: Clear to Auscultation
Cardiac: Regular Rhythm and S1/S2; Negative Murmur, Rub or Gallop
GI: Soft, Nontender, Nondistended and Normal Bowel Sounds; Negative Organomegaly
Rectal: Deferred by Provider
Musculoskeletal: No Clubbing, No Cyanosis and No Edema
Skin: Rash (Diffuse confluence and maculopapular on trunk and extremities)
Neuro: Nonfocal/Grossly Intact
[2025-07-29] MEDS: NSS IV (12:11)
[2025-07-29 12:55] LABS: Glucose - Point of Care 161 mg/dl (70-99)
[2025-07-29] MEDS: NOVOLOG FLEXPEN-LOW RESISTANCE 1 UNITS SC (13:15)
[2025-07-29 17:37] LABS: Glucose - Point of Care 147 mg/dl (70-99)
[2025-07-29] MEDS: NOVOLOG FLEXPEN-LOW RESISTANCE SC (17:45)
[2025-07-29 22:14] LABS: Glucose - Point of Care 145 mg/dl (70-99)
--- NOTE | 2025-07-30 02:30 | PTCARENOTE ---
Received pt @ change of shift. AAOx3, VSS-- NSR on monitor. Macular rash improved from day before. Pt denies itchiness, pain, or discomfort with rash. Discussed plan of care. Pt verbalizes understanding. Plan of care ongoing. Call golden within reach.
[2025-07-30 04:37] VITALS: BP 115/81
[2025-07-30 05:42] LABS: Hematocrit 33.5 % (39.0-52.0); Hemoglobin 11.3 g/dL (13.0-18.0); Mean Corp Hgb Conc. 33.7 g/dL (33.0-37.0); Mean Corpuscular Volume 82.5 fL (80.0-94.0); Nucleated Red Blood Cells % 0 % (-); Platelet Count 197 10^3/uL (130-400); Red Cell Dist. Width 13.5 % (11.5-14.5)
[2025-07-30 05:58] LABS: ALT (SGPT) 120 U/L (0-50); AST (SGOT) 79 U/L (17-59); Albumin 3.6 g/dl (3.5-5.0); Alkaline Phosphatase 89 U/L (38-126); Blood Urea Nitrogen 22 mg/dl (9-20); Calcium 9.1 mg/dl (8.4-10.2); Carbon Dioxide 23 mmol/L (22-30); Chloride 109 mmol/L (98-107); Estimated Creatinine Clearance > 125 ml/min; Glucose 100 mg/dl (70-99); Potassium 4.1 mmol/L (3.5-5.1); Sodium 137 mmol/L (135-145); Total Protein 6.1 g/dl (6.3-8.2); eGFR > 60.00
--- NOTE | 2025-07-30 08:06 | W.PN.CD ---
Today's Communication / Plan
-
Eliquis for DVT
Dilt ER 240 daily for 2-4 months for AFib and flutter
Impression / Plan
-
Patient called to reevaluate for recurrent atrial fibrillation with RVR. Patient has now developed DRESS syndrome.
Marine Services Technician: MD Deangelo.
Newly found PAF and likely paroxysmal aflutter (type of flutter unknown: typical vs atypical)
- Seems to have been precipitated by his medical illness: DRESS
- Several paroxysms this admit, last converted to sinus on 07/29/2025 between 2-3 AM => only sinus since
- [id number] is 0 (or 1 if a minimal coronary calcium score). I would not give a point for a provoked DVT.
- PO dilt ER 240 daily for 2-4 months
- [id number] score is either 0 or perhaps 1 (if vascular disease point for CAC score of 21 or if the DVT);
- on Eliquis for provoked DVT
- Echocardiogram revealed normal cardiac function and no significant valvulopathy.
DRESS Syndrome suspected (Drug Reaction with Eosinophilia and Systemic Symptoms)
- On steroids
- LLL abnormality on chest CT felt to be part of DRESS per ID
Precipitated RUE DVT from a PICC - on Eliquis 5mg BID, continue.
HLD - stable on Crestor 10 mg daily, continue.
Elevated coronary calcium score - 21.
- on Crestor, continue.
Left hip prosthetic joint infection
- s/p extraction with spacer placement on 07/01/2025, finished 6-week course of antibiotics.
- ID following.
- surgeon in [place].
MS - chronic, on meds.
- Management as per primary hospitalist team.
Prediabetes
Subjective: No CP or dyspnea.
Physical Exam
Vital Signs/Labs
Vital Signs
Temp Pulse Resp BP Pulse Ox
97.9 F 74 16 115/81 95
07/29/25 22:30 07/30/25 06:00 07/29/25 22:30 07/30/25 04:37 07/30/25 04:37
07/30/25 04:44
07/30/25 04:44
APTT 34.7 Sec (23.4-35.0) 07/25/25 16:38
Magnesium 1.9 mg/dl (1.6-2.3) 07/28/25 05:59
LAB Results
07/28/25
Unknown
Troponin I < 0.012
Physical Exam
Constitutional: No acute distress
EENT: Anicteric
Cardiovascular: Rhythm & rate is regular and Pedal edema is absent
Respiratory: Respiratory effort normal and Lungs clear to auscul.
GI: Soft and Distention absent
Neuro/Psych: AO x 3
Data Reviewed
-
Date of Service: July 30, 2025
[2025-07-30 08:07] VITALS: BP 114/76
[2025-07-30] MEDS: VISBIOME 1 CAP PO (08:47)
[2025-07-30] MEDS: ELIQUIS 5 MG PO (08:47)
[2025-07-30] MEDS: PROTONIX 40 MG PO (08:47)
[2025-07-30] MEDS: VITAMIN C 250 MG PO (08:47)
[2025-07-30] MEDS: MUCINEX 600 MG PO (08:47)
[2025-07-30 08:49] LABS: Glucose - Point of Care 82 mg/dl (70-99)
[2025-07-30] MEDS: CARDIZEM CD 240 MG PO (08:49)
[2025-07-30 08:50] VITALS: BP 117/83
[2025-07-30] MEDS: DELTASONE 50 MG PO (08:51)
[2025-07-30] MEDS: NOVOLOG FLEXPEN-LOW RESISTANCE SC (08:51)
[2025-07-30] MEDS: VITAMIN D3 (cholecalciferol) 10 MCG PO (08:51)
[2025-07-30 09:16] VITALS: BP 117/83; PULSE 75
--- NOTE | 2025-07-30 10:04 | W.PN.HOSP.TC ---
Today's Communication/Plan
-
Discharge
Assessment / Plan
Assessment / Plan
Impression.
This is a 54-year-old male with past medical history significant for CAD, multiple sclerosis, hyperlipidemia, recent diagnosis of left hip prostatic joint infection status post explantation with spacer placement on July 01 and currently on 6
weeks of antibiotics (currently on dalbavancin) presenting to the emergency department with fever tachycardia and hypoxia.
Left lower lobe pneumonia, community-acquired.
Maculopapular rash with concern for cephalosporin allergy.
Atrial fibrillation with rapid ventricular response, new onset
Conditions prior to admission.
Recent hospitalization for right upper extremity DVT provoked by PICC line initiated on anticoagulation with Eliquis.
MTHFR gene mutation with potential for hypercoagulable state.
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
Multiple sclerosis on Copaxone.
Prediabetes.
Dyslipidemia.
Plan
DRESS syndrome
Suspected secondary to long-acting Dalvance. Less likely allergic to cefepime.
Presents with diffuse maculopapular rash, later with persistent fever (while on broad-spectrum antibiotics), refill is in the file and elevated transaminases, as well as transient hypoxia and bilateral left greater than right ground glass opacities
on CT scan of the chest.
Last dose of Dalvance given on 07/24/2025
Initiated on prednisone 50 mg daily (0.5 mg/kg)
Continue slow corticosteroid taper
Follow-up CBC and CMP
Left greater than right ground glass infiltrates.
No evidence for respiratory distress
Initial concern for community-acquired pneumonia, although retrospectively possible pulmonary manifestation of DRESS
Initially on cefepime, later changed to meropenem with concern for allergic reaction and later transition to Levaquin initiated on 07/28
Procalcitonin negative
Discussed with ID, and patient's .
With low suspicion for acute infection, will discontinue levofloxacin and monitor closely.
Follow chest x-ray in 4 to 6 weeks as outpatient
Left hip prosthetic joint infection status explant with spacer on 06/27/2025
Intraoperative culture reported with P acnes
Initially on daptomycin and given PICC line issues/DVT, transition to dalbavancin. Second injection given 07/24/2025.
Current plan is for antibiotic vacation.
Atrial fibrillation with rapid ventricular response likely triggered by fever and infection. New onset.
No prior history of arrhythmias
Initiate IV Cardizem with bolus and titration.
Converted to normal sinus rhythm
Transition to oral Cardizem 240 mg daily
Echocardiogram with preserved biventricular function and no evidence of valvular abnormalities
Thromboembolic prophylaxis:
Currently on Eliquis for left upper extremity DVT
[id number] 0 patient denies any history of cardiovascular disease, hypertension, CVA.
Left upper extremity DVT provoked by PICC line.
MTHFR gene mutation with potential for hypercoagulable state.
Continue anticoagulation with Eliquis
Update homocystine level 8.
On oral B12 therapy
Eventually update left upper extremity Doppler prior to discontinuation of anticoagulation
Patient has scheduled outpatient follow-up with hematology oncology
Multiple sclerosis without exacerbation
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
Prediabetes
Not on glucose lowering medications prior to admission.
Currently on pulse dose of corticosteroids with expected hyperglycemia
Updated hemoglobin A1c level of 5.3
Monitor blood glucose as outpatient while on systemic steroid taper.
Anticipated Discharge: Today
Subjective/Interval History
-
Date of Service: July 30, 2025
Objective Data
-
Labs:
Laboratory Results
07/30/25
04:44
WBC 6.5
Hgb 11.3 L
Hct 33.5 L
Plt Count 197
Sodium 137
Potassium 4.1
Chloride 109 H
Carbon Dioxide 23
BUN 22 H
Creatinine 0.7
Glucose 100 H
Calcium 9.1
Total Bilirubin 0.5
AST 79 H
ALT 120 H
Alkaline Phosphatase 89
Vital Signs:
Vital Signs
Temp Pulse Resp BP Pulse Ox
97.8 F 74 18 115/81 96
07/30/25 08:11 07/30/25 08:11 07/30/25 08:11 07/30/25 04:37 07/30/25 08:11
I&O
07/29/25 07/30/25 07/31/25
06:59 06:59 06:59
Output Total 550 / 550 1400 / 1400
Balance -550 / -550 -1400 / -1400
Physical Exam
-
General: Well Developed and No Apparent Distress
HEENT: Normocephalic, Atraumatic and Moist Mucous Membranes
Respiratory: Clear to Auscultation
Cardiac: Regular Rhythm and S1/S2; Negative Murmur, Rub or Gallop
GI: Soft, Nontender, Nondistended and Normal Bowel Sounds; Negative Organomegaly
Rectal: Deferred by Provider
Musculoskeletal: No Clubbing, No Cyanosis and No Edema
Skin: Rash (Diffuse confluence and maculopapular on trunk and extremities)
Neuro: Nonfocal/Grossly Intact
--- NOTE | 2025-07-30 10:07 | W.DCSUMMARY ---
Discharge Summary
Discharge Data
Date of Admission: 07/25/25
Date of Discharge: 07/30/25
Total time spent discharging patient (in min): 45
-
Pending Results: No
Hospital Course
Principal diagnosis
DRESS syndrome
Paroxysmal atrial fibrillation new onset.
Conditions prior to admission.
Recent hospitalization for right upper extremity DVT provoked by PICC line initiated on anticoagulation with Eliquis.
MTHFR gene mutation with potential for hypercoagulable state.
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
Multiple sclerosis on Copaxone.
Prediabetes.
Dyslipidemia.
Plan
DRESS syndrome
Suspected secondary to long-acting Dalvance. Less likely allergic to cefepime.
Presents with diffuse maculopapular rash, later with persistent fever (while on broad-spectrum antibiotics), refill is in the file and elevated transaminases, as well as transient hypoxia and bilateral left greater than right ground glass opacities
on CT scan of the chest.
Last dose of Dalvance given on 07/24/2025
Initiated on prednisone 50 mg daily (0.5 mg/kg)
Continue slow corticosteroid taper
Follow-up CBC and CMP
Left greater than right ground glass infiltrates.
No evidence for respiratory distress
Initial concern for community-acquired pneumonia, although retrospectively possible pulmonary manifestation of DRESS
Initially on cefepime, later changed to meropenem with concern for allergic reaction and later transition to Levaquin initiated on 07/28
Procalcitonin negative
Discussed with ID, and patient's .
With low suspicion for acute infection, will discontinue levofloxacin and monitor closely.
Follow chest x-ray in 4 to 6 weeks as outpatient
Left hip prosthetic joint infection status explant with spacer on 06/27/2025
Intraoperative culture reported with P acnes
Initially on daptomycin and given PICC line issues/DVT, transition to dalbavancin. Second injection given 07/24/2025.
Current plan is for antibiotic vacation.
Atrial fibrillation with rapid ventricular response likely triggered by fever and infection. New onset.
No prior history of arrhythmias
Initiate IV Cardizem with bolus and titration.
Converted to normal sinus rhythm
Transition to oral Cardizem 240 mg daily
Echocardiogram with preserved biventricular function and no evidence of valvular abnormalities
Thromboembolic prophylaxis:
Currently on Eliquis for left upper extremity DVT
[id number] 0 patient denies any history of cardiovascular disease, hypertension, CVA.
Left upper extremity DVT provoked by PICC line.
MTHFR gene mutation with potential for hypercoagulable state.
Continue anticoagulation with Eliquis
Update homocystine level 8.
On oral B12 therapy
Eventually update left upper extremity Doppler prior to discontinuation of anticoagulation
Patient has scheduled outpatient follow-up with hematology oncology
Multiple sclerosis without exacerbation
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
Prediabetes
Not on glucose lowering medications prior to admission.
Currently on pulse dose of corticosteroids with expected hyperglycemia
Updated hemoglobin A1c level of 5.3
Monitor blood glucose as outpatient while on systemic steroid taper.
Discharge Plan
-
Patient Disposition: Home (Routine Discharge)
Discharge Diagnosis/Procedures: DRESS
Paroxysmal atrial fibrillation, new onset
Condition: Good
Diet: Regular
Blood Work: CBC with dif, CMP in one week
Others Tests: CXR in 4-5 weeks
Referrals:
[facility] Visiting Nurse [Outside]
Referral Note: now called- [facility] boxer-PT-[facility] services
Trevor Gomez CRNP [Family Provider, General]
Ramirez Bright MD [Active, Cardiology]
Referral Note: Follow-up in 3 months
Prescriptions:
New
diltiazem HCl 120 mg Capsule,Extended Release 24hr
240 mg PO DAILY Qty: 60 2RF
prednisone 5 mg tablet
5 mg PO DIRECTED Qty: 252 0RF
Rx Instructions:
Start with 40 mg daily and decrease dose by 5 mg every week.
Continued
Eliquis 5 mg tablet
5 mg PO BID Qty: 70 0RF
Rx Instructions:
To 10 mg twice daily for 7 days then 5 mg twice daily thereafter
ascorbic acid (vitamin C) [Vitamin C] 250 mg Tablet
250 mg PO DAILY
pantoprazole [Protonix] 40 mg Tablet,Delayed Release (Dr/Ec)
40 mg PO BID
cholecalciferol (vitamin D3) [Vitamin D3] 10 mcg (400 unit) Tablet
10 mcg PO DAILY
Visbiome 112.5 billion cell Capsule
1 cap PO DAILY
rosuvastatin tablet
10 mg PO DAILY
mecobalamin (vitamin B12) [B12 Active] 1,000 mcg Tablet,Chewable
1,000 mcg PO DAILY
Discharge Orders:
Discharge Patient (As Directed); Ordered 07/30/25
Ordered By: Sonny Montes De Oca
Care Plan Goals
Care Plan Goals:
Problem: Readiness for enhanced knowledge related to diagnosis and treatment plan
Goal: Understand your diagnosis and treatment plan needs, including medications if applicable.
Instructions: Know your diagnosis, underlying causes and treatment plan options, including medications if applicable. Consult with your health care team to learn about your diagnosis and treatment plan, including medications if applicable.
Discharge Date and Time
Print Language: TRINIDADIAN
[2025-07-30 10:17] VITALS: BP 117/83; PULSE 74
--- NOTE | 2025-07-30 10:42 | W.PN.ID1 ---
Date of Service
Date of Service: July 30, 2025
Today's Communication
- Can decrease prednisone to 40 mg po qd x 7d and taper by 5mg per week.
Assessment / Plan
# DRESS: fever, eosinophilia, rash
# LLL opacity lung involvement of DRESS. Procal negative
# Elevated LFT's could be due to DRESS, slightly improved/stable
- Suspect DRESS from long acting dalbavancin (last dose 07/24)
(Fever persisted and rash progressing despite off cefepime, so doubt cephalosporin allergy)
- Blood cx's neg to date.
- Prednisone 50mg qd started 07/28 with resolution of fever, rash improvement, resolution of eos
- Can decrease prednisone to 40 mg po qd x 7d and taper by 5mg per week.
# New onset afib with RVR, now in sinus
- Cardiology following
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
# Recent provoked PICC -associated DVT
I spoke to his Dr. Garner, his ID physician in [facility] on 07/26.
Pt initially was placed on broad-spectrum abx's Daptomycin and levofloxacin post-op when initial OR cx negative.
After discharge, OR cx turned positive with Cutibacterium acne. Dr. Garner dc'd the levofloxacin and continued with Daptomycin.
However, pt then developed PICC-associated DVT, Picc dc'd 07/16. Daptomycin replaced with Dalbavancin IV x 2 doses one week apart which he completed 07/24.
Follow-up with Ortho.
Prior to admission:
#MS
#CAD
#HLD
#Cystic kidney
# Picc-associated DVT 07/14/25
#R total hip arthroplasty 11/2023
# L total hip arthroplasty 08/2023 -> C. acne PJI s/p removal 07/01/25
Chief Complaint
-: Fever and Other
Subjective / Review of Systems
No new complaints. Feels well.
Vital Signs / Physical Exam
Vital Signs
Vital Signs
Temp Pulse Resp BP Pulse Ox
97.8 F 74 18 115/81 96
07/30/25 08:11 07/30/25 08:11 07/30/25 08:11 07/30/25 04:37 07/30/25 08:11
Physical Exam
Constitutional: No Acute Distress and Comfortable
Eyes: No Conjunctival Hemorrhage and Sclera Anicteric
Oropharyngeal: Benign
Cardiovascular: Regular Rate and S1/S2
Pulmonary: Coarse (left base)
Gastrointestinal: Soft, Non Tender, Non Distended and Normal Bowel Sounds
Genito-Urinary: Negative CVA Tenderness
Extremities: Negative Edema
Skin: Rash (Rash on bilateral foot resolving. Stable maculopapular rash on chest, abd, and posterior torso decreasing.)
Neurological: AO x 3
Objective Data
Lab Data
Lab Results
07/30/25 04:44
07/30/25 04:44
APTT 34.7 Sec (23.4-35.0) 07/25/25 16:38
Estimated Creat Clear > 125 ml/min 07/30/25 04:44
Lactic Acid 1.6 mmol/L (0.7-2.0) 07/28/25 Unknown
Total Bilirubin 0.5 mg/dl (0.2-1.3) 07/30/25 04:44
AST 79 U/L (17-59) H 07/30/25 04:44
ALT 120 U/L (0-50) H 07/30/25 04:44
Alkaline Phosphatase 89 U/L (38-126) 07/30/25 04:44
Most recent labs reviewed.
Micro Results:
07/27/25 08:01 Blood Culture - Preliminary
Blood/Venous No Growth in 72 hours- Final report to follow
07/25/25 16:38 Blood Culture - Preliminary
Blood/Venous No Growth in 4 days- Final report to follow
07/26/25 14:46 Blood Culture - Preliminary
Blood/Venous No Growth in 72 hours- Final report to follow
07/27/25 09:14 Respiratory Culture - Final
Sputum Gram Stain - Final
07/26/25 15:13 Respiratory Culture - Final
Sputum Gram Stain - Final
07/25/25 21:37 Streptococcus pneumoniae Antigen (M - Final
Urine Negative for Streptococcus pneumoniae antigen.
A negative result does not exclude infection with
Streptococcus pneumoniae. Clinical correlation is
recommended.
07/25/25 21:37 Legionella Urinary Antigen - Final
Urine Negative for Legionella pneumophila Serogroup 1 antigen.
A negative result does not rule out the possiblity of
Legionella infection due to other serogroups or species of
Legionella. Clinical correlation is recommended.
07/25/25 16:38 Influenza Types A & B (JULIA) - Final
Nasal Swab Negative for Influenza A & B, NAAT
Negative results must be combined with clinical observations
and patient history.
Nucleic Acid Amplification test (NAAT)performed on the
[employer] platform.
Imaging:
CT chest PE study 07/25/2025:
IMPRESSION:
1. No evidence of central, lobar or segmental pulmonary embolism.
2. There is a consolidation with surrounding groundglass opacities within the posterior left lower lobe which likely represents pneumonia. There are additional opacities within the posterior right lower lobe which has an appearance more
characteristic of atelectasis.
Care Review
Plan reviewed with: Physician (Dr. Montes De Oca)
--- NOTE | 2025-07-30 11:22 | PTCARENOTE ---
Discharge instructions reviewed with Pt, Pt expressed understanding.
--- NOTE | 2025-07-30 11:36 | CM ---
Spoke with [facility] ([phone]), agreeable to complete lab draw for CBC with dif, CMP in one week per DC instructions. Patient to continue with current [facility] services for RN/PT/OT, referral updated. Patient updated and made aware. All questions
answered.
== END 2025-07-30 11:10 | disposition home health service (06) | DRG 816 ==
LOC: IVU 22:40
PROVIDERS: Emergency Medicine; Internal Medicine; Registered Nurse; ADMITTING PHYSICIAN Internal Medicine; ATTENDING PHYSICIAN Internal Medicine; CONSULT PHYSICIAN Internal Medicine; EMERGENCY PHYSICIAN Emergency Medicine; FAMILY PHYSICIAN Nurse Practitioner Family; OTHER PHYSICIAN Internal Medicine Infectious Disease
DX: D72.12 Drug rash with eosinophilia and systemic symptoms syndrome (principal); T36.8X5A Adverse effect of other systemic antibiotics, initial encounter; I48.0 Paroxysmal atrial fibrillation; G35.D Multiple sclerosis, unspecified; E78.5 Hyperlipidemia, unspecified; T84.52XD Infection and inflammatory reaction due to internal left hip prosthesis, subsequent encounter; Y79.2 Prosthetic and other implants, materials and accessory orthopedic devices associated with adverse incidents; I25.10 Atherosclerotic heart disease of native coronary artery without angina pectoris; Z79.01 Long term (current) use of anticoagulants; E53.8 Deficiency of other specified B group vitamins; Z11.52 Encounter for screening for COVID-19
CPT/HCPCS: 71275; 80048; 80053; 81003; 81015; 82962; 83036; 83090; 83605; 83735; 84145; 84484; 85025; 85027; 85730; 87040; 87070; 87205; 87449; 87502; 87811; 87899; 93005; 93306; 96365; 96367; 97116; 97162; 97166; 97530; 97535; 99285; J2185; Q9967